=== PATIENT | female | born 1995 | race Caucasian/White ===

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

== ENCOUNTER 2017-02-24 08:00 | Outpatient (CLI) | payer OTHER ==
[2017-02-24 15:27] LABS: THYROID STIMULATING HORMONE 3.92 uIU/mL (0.34-5.60)
== END 2017-02-24 08:01 ==
LOC: LAB.N 08:00
PROVIDERS: ATTEND Obstetrics & Gynecology
DX: R63.5 Abnormal weight gain (principal)
CPT/HCPCS: 36415; 84439; 84443

== ENCOUNTER 2017-03-16 17:56 | Emergency (ER) | payer OTHER, BC ==
[2017-03-16 18:18] VITALS: BP 119/72
[2017-03-16] MEDS ORDERED: DOXYLAMINE 25 MG TABLET PO STA (19:45)
--- NOTE | 2017-03-16 19:47 | ED Physician Documentation ---
PD HPI NVD - Stated complaint Stated Complaint: N/V - Chief complaint Chief Complaint: Abd Pain - History obtained from History obtained from: Patient - History of Present Illness Timing - onset: Other (She is 7 weeks , G1, she has been nauseous for a week but no vomiting. No abdominal pain, cramping, bleeding, or diarrhea. 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 03/16/17 [Anna Castro 10-10 mg Tablet] Metoclopramide [Reglan] 10 mg PO Q6H PRN #20 tablet 03/16/17 Pnv95/Ferrous Fumarate/FA 1 tab PO DAILY 03/16/17 03/16/17 [ Tablet] - Allergies Allergies/Adverse Reactions: Allergies Allergy/AdvReac Type Severity Reaction Status Date / Time No Known Drug Allergies Allergy Verified 08/31/16 04:01 - Social History Does the pt smoke?: No Smoking Status: Never smoker Does the pt drink ETOH?: No Does the pt have substance abuse?: No - Immunizations Immunizations are current?: Yes - POLST Patient has POLST: No PD ED PE NORMAL - Vitals Vital signs reviewed: Yes - General General: Alert and oriented X 3, No acute distress - Abdomen Abdomen: Soft, Non tender - Derm Derm: No rash - Extremities Extremities: No edema, No calf tenderness / cord - Neuro Neuro: Alert and oriented X 3, Normal speech Results - Vitals Vitals: Vital Signs - 24 hr 03/16/17 18:16 Temperature 36.7 C Heart Rate 86 Respiratory 18 Rate Blood Pressure 119/72 O2 Saturation 99 Oxygen O2 Source Room air Departure - Departure Disposition: Home, Self Care Clinical Impression: Nausea/vomiting in Condition: Good Record reviewed to determine appropriate education?: Yes Instructions: Hyperemesis Prescriptions: Doxylamine/Pyridoxine HCl [Anna Castro 10-10 mg Tablet] 1 each PO QID PRN #20 tablet. PRN Reason: Nausea / Vomiting Metoclopramide [Reglan] 10 mg PO Q6H PRN #20 tablet PRN Reason: Nausea / Vomiting Comments: Call your doctor to arrange a follow-up appointment, make the next available appointment. In the interim, return anytime if worse or if new symptoms develop.
[2017-03-16] MEDS ORDERED: PYRIDOXINE 100 MG TABLET PO SCH (20:00)
[2017-03-16] MEDS ORDERED: PYRIDOXINE 100 MG TABLET PO ONE (20:43)
== END 2017-03-16 20:41 | disposition home or self-care (01) ==
LOC: ED 17:56
DX: O21.9 Vomiting of pregnancy, unspecified (principal); Z3A.01 Less than 8 weeks gestation of pregnancy
CPT/HCPCS: 99283; A9270

== ENCOUNTER 2017-05-25 15:00 | Emergency (ER) | payer OTHER, BC ==
--- NOTE | 2017-05-25 15:26 | ED Physician Documentation ---
PD HPI SYNCOPE - Stated complaint Stated Complaint: DIZZY-17 WKS - Chief complaint Chief Complaint: General - History obtained from History obtained from: Patient - History of Present Illness Witnessed: Unwitnessed Timing - onset: Today (stood up and felt lightheaded, almost felt like she was going to pass out. Did not faint though.) Duration: Minutes Preceding symptoms: Light headed, Generalized weakness (she was sitting studying and got up and felt lightheaded and near syncope, general weakness. Lasted for several minutes. Had been feeling okay prior to that today and feels that she has been eating and drinking adequately. She is 17 weeks without vaginal spotting nor bleeding.). No: Headache, Palpitations, Nausea / vomiting Contributing factors: Just stood up. No: Recent med change, Noxious stimulae Injury occurred: No: Fell, Head injury Similar symptoms before: Has not had sx before Recently seen: Not recently seen Review of Systems Constitutional: denies: Fever, Chills Eyes: denies: Loss of vision, Photophobia Nose: denies: Rhinorrhea / runny nose, Congestion Throat: denies: Sore throat Cardiac: denies: Chest pain / pressure Respiratory: denies: Cough : denies: Dysuria, Frequency Skin: denies: Rash, Lesions Musculoskeletal: denies: Back pain Neurologic: denies: Focal weakness Endocrine: reports: Polyuria. 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 03/16/17 [Anna Castro 10-10 mg Tablet] Metoclopramide [Reglan] 10 mg PO Q6H PRN #20 tablet 03/16/17 Pnv95/Ferrous Fumarate/FA 1 tab PO DAILY 03/16/17 03/16/17 [ Tablet] - Allergies Allergies/Adverse Reactions: Allergies Allergy/AdvReac Type Severity Reaction Status Date / Time No Known Drug Allergies Allergy Verified 08/31/16 04:01 - Social History Does the pt smoke?: No Smoking Status: Never smoker Does the pt drink ETOH?: No Does the pt have substance abuse?: No - Immunizations Immunizations are current?: Yes - POLST Patient has POLST: No PD ED PE NORMAL - Vitals Vital signs reviewed: Yes - General General: Alert and oriented X 3, No acute distress, Well developed/nourished - HEENT HEENT: Moist mucous membranes - Neck Neck: Supple, no meningeal sign, No adenopathy - Cardiac Cardiac: RRR, No murmur - Respiratory Respiratory: Clear bilaterally - Female Female : Deferred - Rectal Rectal: Deferred - Back Back: No CVA TTP - Derm Derm: Normal color, Warm and dry - Extremities Extremities: No tenderness to palpate, Normal ROM s pain, No edema, No calf tenderness / cord - Neuro Neuro: Alert and oriented X 3, No motor deficit, Normal speech Results - Vitals Vitals: Oxygen O2 Source Room air - Labs Labs: Laboratory Tests 05/25/17 05/25/17 05/25/17 15:26 15:55 15:55 WBC 4.6 L RBC 3.76 L Hgb 11.9 L Hct 34.8 L MCV 92.7 MCH 31.6 H MCHC 34.1 RDW 13.0 Plt Count 146 MPV 7.6 L Neut # 2.7 Lymph # 1.3 L Weakley # 0.4 Eos # 0.1 Baso # 0.0 Absolute Nucleated RBC 0.00 Nucleated RBC % 0.0 Sodium 136 Potassium 3.5 Chloride 103 Carbon Dioxide 25 Anion Gap 8.0 BUN 7 Creatinine 0.5 Estimated GFR (MDRD) 159 Glucose 83 Calcium 8.8 Magnesium 1.8 Total Bilirubin < 0.2 L AST 21 ALT 15 Alkaline Phosphatase 68 Total Protein 6.6 L Albumin 3.4 Globulin 3.2 Albumin/Globulin Ratio 1.1 Lipase 18 L Urine Color YELLOW Urine Clarity CLEAR Urine pH 6.0 Ur Specific Holladay 1.025 Urine Protein NEGATIVE Urine Glucose (UA) NEGATIVE Urine Ketones NEGATIVE Urine Occult Blood NEGATIVE Urine Nitrite NEGATIVE Urine Bilirubin NEGATIVE Urine Urobilinogen 0.2 (NORMAL) Ur Leukocyte Esterase NEGATIVE Ur Microscopic Review NOT INDICATED Urine Culture Comments NOT INDICATED PD MEDICAL DECISION MAKING - ED course Complexity details: re-evaluated patient, considered differential (no obvious cause of symptoms, she sounds like should be hydrated enough. But does end up feeling much be), d/w patient Departure - Departure Disposition: 01 Home, Self Care Clinical Impression: Near syncope, Dehydration Condition: Stable Record reviewed to determine appropriate education?: Yes Instructions: ED Near Syncope Unkn Follow-Up: JATINDER RYEES [Primary Care Provider] - Comments: Drink lots of fluids. Your basic labs are normal here. I presume your just under hydrated and had a transient drop in blood pressure was standing up. Recheck if persistent symptoms. Discharge Date/Time: 05/25/17 18:12
[2017-05-25 15:41] LABS: BILIRUBIN,URINE NEGATIVE (NEGATIVE); GLUCOSE, URINE (UA) NEGATIVE (NEGATIVE); KETONES,URINE (UA) NEGATIVE (NEGATIVE); LEUKOCYTE ESTERASE, URINE NEGATIVE (NEGATIVE); NITRITE,URINE NEGATIVE (NEGATIVE); OCCULT BLOOD,URINE NEGATIVE (NEGATIVE); PROTEIN,URINE NEGATIVE (NEGATIVE); UROBILINOGEN,URINE 0.2 (NORMAL) E.U./dL (NORMAL)
[2017-05-25 15:42] LABS: CLARITY,URINE CLEAR (CLEAR)
[2017-05-25] MEDS ORDERED: DEXAMETHASONE 10 MG/ML VIAL PO STA (15:42)
[2017-05-25] MEDS ORDERED: ONDANSETRON 4 MG/2 ML VIAL IVP STA (15:42)
[2017-05-25] MEDS ORDERED: SODIUM CHLORIDE 0.9% 1,000 ML IV ONE ×2 (15:42→15:43)
[2017-05-25] MEDS ORDERED: MECLIZINE 12.5 MG TABLET PO STA (15:42)
[2017-05-25 16:07] LABS: BASOPHILS % (AUTO) 0.3 %; EOSINOPHILS # (AUTO) 0.1 10^3/uL (0.0-0.7); EOSINOPHILS % (AUTO) 2.2 %; HGB - HEMOGLOBIN 11.9 g/dL (12.0-16.0); LYMPHOCYTES # (AUTO) 1.3 10^3/uL (1.5-3.5); LYMPHOCYTES % (AUTO) 29.2 %; MEAN CORPUSCULAR HEMOGLOBIN 31.6 pg (27.0-31.0); MEAN CORPUSCULAR HGB CONC 34.1 g/dL (32.0-36.0); MEAN CORPUSCULAR VOLUME 92.7 fL (81.0-99.0); MEAN PLATELET VOLUME 7.6 fL (7.9-10.8); MONOCYTES # (AUTO) 0.4 10^3/uL (0.0-1.0); MONOCYTES % (AUTO) 9.3 %; NEUTROPHILS # (AUTO) 2.7 10^3/uL (1.5-6.6); PLT - PLATELET COUNT 146 10^3/uL (130-450); RED BLOOD COUNT 3.76 10^6/uL (4.20-5.40); WHITE BLOOD COUNT 4.6 x10^3/uL (4.8-10.8)
[2017-05-25 16:14] LABS: ALBUMIN 3.4 g/dL (3.2-5.5); ALBUMIN/GLOBULIN RATIO 1.1 (1.0-2.2); ALKALINE PHOSPHATASE 68 IU/L (42-121); ALT ALANINE AMINOTRANSFERASE 15 IU/L (10-60); AST ASPARTATE AMINOTRANSFERASE 21 IU/L (10-42); BILIRUBIN,TOTAL < 0.2 mg/dL (0.2-1.0); BUN - BLOOD UREA NITROGEN 7 mg/dL (6-20); CALCIUM 8.8 mg/dL (8.5-10.3); CARBON DIOXIDE - CO2 25 mmol/L (21-32); CHLORIDE 103 mmol/L (101-111); CREATININE 0.5 mg/dL (0.4-1.0); GFR - MDRD 159 (>89); GLUCOSE 83 mg/dL (70-100); LIPASE 18 U/L (22-51); MAGNESIUM 1.8 mg/dL (1.7-2.8); SODIUM 136 mmol/L (135-145); TOTAL PROTEIN 6.6 g/dL (6.7-8.2)
[2017-05-25 18:08] VITALS: BP 102/64
== END 2017-05-25 18:12 | disposition home or self-care (01) ==
LOC: ED 15:00
DX: O99.282 Endocrine, nutritional and metabolic diseases complicating pregnancy, second trimester (principal); E86.0 Dehydration; O99.89 Other specified diseases and conditions complicating pregnancy, childbirth and the puerperium; R55 Syncope and collapse; Z3A.17 17 weeks gestation of pregnancy
CPT/HCPCS: 36415; 80053; 81003; 83690; 83735; 85025; 96361; 96374; 99283; 99284; A9270; 81001; 87086

== ENCOUNTER 2017-05-26 16:15 | Outpatient (CLI) | payer BC, OTHER | END 2017-05-26 16:16 | disposition home or self-care (01) | LOC: LAB 16:15 | PROVIDERS: ATTEND Obstetrics & Gynecology | DX: Z13.79 Encounter for other screening for genetic and chromosomal anomalies (principal) | CPT/HCPCS: 36415; 81599; 82105; 82677; 84702; 86336 ==

== ENCOUNTER 2017-06-30 12:33 | Outpatient (CLI) | payer BC, OTHER ==
--- NOTE | 2017-07-02 19:11 | Ultrasound Report ---
OB ULTRASOUND: 06/30/2017 CLINICAL INDICATION: anatomy. TECHNIQUE: Real-time scanning was performed with appeals representative static images obtained. LAST MENSTRUAL PERIOD: unsure Clinical Age: -- US Age: 21 weeks 3 days EFW Hadlock: 433 grams EFW% Hadlock: -- Heart Rate: 135 bpm EDC: 11/12/2017 US EDC: 11/07/2017 BPD Hadlock: 22 weeks 0 days; Mean mm 53 HC Hadlock: 21 weeks 0 days; Mean mm 186 AC Hadlock: 21 weeks 3 days; Mean mm 163 FL Hadlock: 21 weeks 6 days; Mean mm 37 Presentation: variable Placental Location: posterior Cervical Length: 3.7 cm Amniotic Fluid: PELON 17.56 cm; subjectively normal; MVP 4.8 cm FINDINGS: There is a single viable intrauterine gestation, in variable presentation. heart rate is 135 BPM. Placenta is posterior, without evidence of previa. Amniotic fluid volume is subjectively normal, with the deepest pocket of 4.8 cm. By size , the fetus measures 21 weeks 3 days (uncertain LMP). ANATOMY The following anatomic structures were visualized and appear normal: The intracranial contents, including the ventricles and posterior fossa; the lips and orbits; the spine; the heart, including 4 chamber view and outflow tracts, and diaphragm; the abdominal contents, including the stomach, the bilateral kidneys, and urinary bladder, as well as a normal 3-vessel cord insertion; 4 limbs. No free fluid or adnexal lesion is appreciated. IMPRESSION: SINGLE VIABLE INTRAUTERINE GESTATION, MEASURING 21 WEEKS 3 DAYS BY SIZE. NORMAL ANATOMIC SURVEY. TD: 06/30/2017 15:11 MTDD
== END 2017-06-30 12:34 | disposition home or self-care (01) ==
LOC: DI 12:33
PROVIDERS: ATTEND Obstetrics & Gynecology
DX: Z36.9 Encounter for antenatal screening, unspecified (principal)
CPT/HCPCS: 76811

== ENCOUNTER 2017-07-07 14:37 | Outpatient (CLI) | payer BC, OTHER ==
[2017-07-07] MEDS ORDERED: fentaNYL 100 MCG/2 ML VIAL IVP PRN (15:11)
[2017-07-07] MEDS ORDERED: ONDANSETRON 4 MG/2 ML VIAL IVP PRN (15:12)
[2017-07-07] MEDS ORDERED: SODIUM CHLORIDE FLUSH 0.9% 10 ML SYRINGE ONE (15:29)
[2017-07-07] MEDS ORDERED: LACTATED RINGERS 1,000 ML IV ONE (15:29)
[2017-07-07 16:10] LABS: BASOPHILS % (AUTO) 0.3 %; EOSINOPHILS # (AUTO) 0.1 10^3/uL (0.0-0.7); EOSINOPHILS % (AUTO) 1.6 %; HGB - HEMOGLOBIN 11.7 g/dL (12.0-16.0); LYMPHOCYTES # (AUTO) 1.6 10^3/uL (1.5-3.5); LYMPHOCYTES % (AUTO) 18.7 %; MEAN CORPUSCULAR HEMOGLOBIN 31.8 pg (27.0-31.0); MEAN CORPUSCULAR HGB CONC 33.3 g/dL (32.0-36.0); MEAN CORPUSCULAR VOLUME 95.5 fL (81.0-99.0); MEAN PLATELET VOLUME 8.3 fL (7.9-10.8); MONOCYTES # (AUTO) 0.5 10^3/uL (0.0-1.0); MONOCYTES % (AUTO) 5.3 %; NEUTROPHILS # (AUTO) 6.2 10^3/uL (1.5-6.6); NEUTROPHILS % (AUTO) 74.1 %; PLT - PLATELET COUNT 167 10^3/uL (130-450); RED BLOOD COUNT 3.67 10^6/uL (4.20-5.40); RED CELL DISTRIBUTION WIDTH 13.1 % (12.0-15.0); WHITE BLOOD COUNT 8.4 x10^3/uL (4.8-10.8)
[2017-07-07 16:18] LABS: CALCIUM 8.7 mg/dL (8.5-10.3); CREATININE 0.5 mg/dL (0.4-1.0)
[2017-07-07 16:24] LABS: BILIRUBIN,URINE NEGATIVE (NEGATIVE); GLUCOSE, URINE (UA) NEGATIVE (NEGATIVE); KETONES,URINE (UA) TRACE mg/dL (NEGATIVE); LEUKOCYTE ESTERASE, URINE NEGATIVE (NEGATIVE); NITRITE,URINE NEGATIVE (NEGATIVE); OCCULT BLOOD,URINE NEGATIVE (NEGATIVE); PROTEIN,URINE NEGATIVE (NEGATIVE); UROBILINOGEN,URINE 0.2 (NORMAL) E.U./dL (NORMAL)
[2017-07-07 16:27] LABS: CLARITY,URINE CLEAR (CLEAR)
[2017-07-07 16:39] LABS: BACTERIA,URINE Rare /HPF (None Seen); RBC,URINE 0-5 /HPF (0-5); SQUAMOUS EPITHELIAL CELL,UR MANY Squamous (<= Few)
[2017-07-07] MEDS ORDERED: LACTATED RINGERS 1,000 ML IV SCH (17:00)
--- NOTE | 2017-07-07 17:49 | Ultrasound Preliminary Report ---
Exam: US OB F/U OR REPEAT IMPRESSION: 1. Marion live intrauterine gestation. No evidence of placental abruption. Normal cervix. [facility] SITE ID: [id number]
--- NOTE | 2017-07-07 17:50 | Ultrasound Report ---
REVISED: REPORT ORIG. SIGNED ON 07/07/2017@1750; ORDERS LINKED ON [id number] EXAM: FOLLOW-UP OBSTETRICAL ULTRASOUND EXAM DATE: 07/07/2017 05:35 PM. CLINICAL HISTORY: Severe left lower quadrant pain. COMPARISON: 06/30/2017. TECHNIQUE: Real-time sonographic evaluation of the fetus performed by the center sales and service associate. Additional transvaginal imaging to more accurately evaluate cervical length. Multiple physician representative static images were saved for review. DATING: Established EGA 22 weeks 3 days with ZEESHAN 11/07/2017 based on anatomy scan. GENERAL EVALUATION Marion . Cardiac activity: 137 bpm. movement: Visualized. Presentation: Cephalic. Placenta: Posterior position. No previa or abruption. Amniotic fluid: Subjectively normal The cervix is closed, measuring 4.3 cm transvaginally. IMPRESSION: 1. Marion live intrauterine gestation. No evidence of placental abruption. Normal cervix. [facility] Referring Provider Line: [phone] SITE ID: [id number] MTDD
[2017-07-07 17:58] VITALS: BP 106/62
--- NOTE | 2017-07-08 13:35 | HISTORY & PHYSICAL EXAMINATION ---
DATE OF SERVICE: 07/07/2017 Physician: Kem Mcdonald MD PATIENT IDENTIFICATION: Patient is a 21-year-old G2, P0, AB1 female who is currently 23.1 weeks. CHIEF COMPLAINT: Left lower quadrant pain. HISTORY OF PRESENT ILLNESS: Patient states that last week she developed some difficulty with anxiety. She was seen by her OB provider, at which time she was placed on Zoloft. She had used this in the past; however, she developed nausea and then developed severe vomiting immediately following this. While retching she developed a very sharp onset left lower quadrant pain. She denies any bleeding. She is noted to have a fetus which is moving. She denies any contractions or cramping at this time. She states the pain is very severe, probably about a 7/10. Labs were obtained, at which time she was noted to have a normal CBC. Her urinalysis was negative for RBCs. She did have squamous epithelial cells. Her electrolytes were all within normal limits. Ultrasound showed evidence of a live with good activity. No evidence of any abruption or other issues. Cervix is long, greater than 4 cm. IMPRESSION: A 21-year-old G2, P0, female at 23.1 weeks with acute muscle strain in the left lower quadrant. There is no evidence of any kind of abruption or any other compromise to the at this time. Patient instructed to ice the area for the first 24-48 hours and then utilize warm heat. She is instructed that should things progressively get worse or change, she should presents sooner. TD: 07/07/2017 20:54 [facility]ITAL[facility] Grace
== END 2017-07-07 17:55 | disposition home or self-care (01) ==
LOC: WFO 14:37 → FBP 14:40 → WFO 17:55
PROVIDERS: ATTEND Obstetrics & Gynecology
DX: O9A.212 Injury, poisoning and certain other consequences of external causes complicating pregnancy, second trimester (principal); S39.011A Strain of muscle, fascia and tendon of abdomen, initial encounter; O21.2 Late vomiting of pregnancy; X58.XXXA Exposure to other specified factors, initial encounter; Z3A.23 23 weeks gestation of pregnancy
CPT/HCPCS: 76816; 76817; 80048; 81001; 85025; 96374; 96375; 99214; J7120; 36415; 87086

== ENCOUNTER 2017-07-14 13:52 | Outpatient (CLI) | payer BC, OTHER ==
[2017-07-14 18:55] LABS: BASOPHILS % (AUTO) 0.2 %; EOSINOPHILS # (AUTO) 0.2 10^3/uL (0.0-0.7); EOSINOPHILS % (AUTO) 2.9 %; HGB - HEMOGLOBIN 10.3 g/dL (12.0-16.0); LYMPHOCYTES # (AUTO) 1.3 10^3/uL (1.5-3.5); LYMPHOCYTES % (AUTO) 18.7 %; MEAN CORPUSCULAR HEMOGLOBIN 32.3 pg (27.0-31.0); MEAN CORPUSCULAR HGB CONC 33.7 g/dL (32.0-36.0); MEAN CORPUSCULAR VOLUME 95.9 fL (81.0-99.0); MEAN PLATELET VOLUME 8.5 fL (7.9-10.8); MONOCYTES # (AUTO) 0.4 10^3/uL (0.0-1.0); MONOCYTES % (AUTO) 6.2 %; PLT - PLATELET COUNT 145 10^3/uL (130-450); RED CELL DISTRIBUTION WIDTH 12.8 % (12.0-15.0); WHITE BLOOD COUNT 6.9 x10^3/uL (4.8-10.8)
[2017-07-14 19:16] LABS: BILIRUBIN,URINE NEGATIVE (NEGATIVE); GLUCOSE, URINE (UA) NEGATIVE (NEGATIVE); KETONES,URINE (UA) NEGATIVE (NEGATIVE); LEUKOCYTE ESTERASE, URINE NEGATIVE (NEGATIVE); NITRITE,URINE NEGATIVE (NEGATIVE); OCCULT BLOOD,URINE NEGATIVE (NEGATIVE); PROTEIN,URINE NEGATIVE (NEGATIVE); UROBILINOGEN,URINE 0.2 (NORMAL) E.U./dL (NORMAL)
[2017-07-14 19:31] LABS: CLARITY,URINE CLEAR (CLEAR); RBC,URINE None Seen /HPF (0-5); SQUAMOUS EPITHELIAL CELL,UR FEW Squamous (<= Few)
[2017-07-14 19:32] LABS: BACTERIA,URINE None Seen /HPF (None Seen)
[2017-07-14 19:33] LABS: MUCUS,URINE Moderate Strands
[2017-07-15 09:05] LABS: HEPATITIS B SURFACE ANTIGEN NON-REACTIVE (NON-REACTIVE)
[2017-07-15 14:48] LABS: HIV AG/AB 4TH GEN NON-REACTIVE (NON-REACTIVE)
== END 2017-07-14 13:53 | disposition home or self-care (01) ==
LOC: LAB.N 13:52
PROVIDERS: ATTEND Obstetrics & Gynecology
DX: Z36.9 Encounter for antenatal screening, unspecified (principal)
CPT/HCPCS: 36415; 81001; 81599; 85025; 86592; 86762; 86850; 86900; 86901; 87340; 87389

== ENCOUNTER 2017-07-24 18:31 | Outpatient (CLI) | payer BC, OTHER ==
[2017-07-24 20:04] VITALS: BP 109/59
--- NOTE | 2017-07-25 16:51 | XRAY Preliminary Report ---
Exam: XR CHEST 2 VIEW X-RAY IMPRESSION: Normal 2-view chest radiography. [facility] SITE ID: [id number]
--- NOTE | 2017-07-25 16:52 | XRAY Report ---
EXAM: CHEST RADIOGRAPHY EXAM DATE: 07/24/2017 07:30 PM. CLINICAL HISTORY: Shortness of air. Chest pain. Symptoms for one week. COMPARISON: None. TECHNIQUE: 2 views. FINDINGS: Lungs/Pleura: No focal opacities evident. No pleural effusion. No pneumothorax. Normal volumes. Mediastinum: Heart and mediastinal contours are unremarkable. Other: None. IMPRESSION: Normal 2-view chest radiography. [facility] Referring Provider Line: [phone] SITE ID: [id number]
== END 2017-07-24 20:30 | disposition home or self-care (01) ==
LOC: WFO 18:31 → FBP 18:33 → WFO 20:30
PROVIDERS: ATTEND Obstetrics & Gynecology
DX: O99.612 Diseases of the digestive system complicating pregnancy, second trimester (principal); Z3A.25 25 weeks gestation of pregnancy; K21.9 Gastro-esophageal reflux disease without esophagitis; O99.512 Diseases of the respiratory system complicating pregnancy, second trimester; J30.9 Allergic rhinitis, unspecified; O99.342 Other mental disorders complicating pregnancy, second trimester; F41.9 Anxiety disorder, unspecified
CPT/HCPCS: 71046; 99213

== ENCOUNTER 2017-08-05 14:30 | Outpatient (CLI) | payer BC, OTHER ==
[2017-08-05 19:08] LABS: HGB - HEMOGLOBIN 11.2 g/dL (12.0-16.0); MEAN CORPUSCULAR HEMOGLOBIN 32.7 pg (27.0-31.0); MEAN CORPUSCULAR VOLUME 96.1 fL (81.0-99.0); MEAN PLATELET VOLUME 8.9 fL (7.9-10.8); RED BLOOD COUNT 3.42 10^6/uL (4.20-5.40); RED CELL DISTRIBUTION WIDTH 12.5 % (12.0-15.0); WHITE BLOOD COUNT 7.3 x10^3/uL (4.8-10.8)
== END 2017-08-05 14:31 | disposition home or self-care (01) ==
LOC: LAB.N 14:30
PROVIDERS: ATTEND Obstetrics & Gynecology
DX: Z34.90 Encounter for supervision of normal pregnancy, unspecified, unspecified trimester (principal)
CPT/HCPCS: 36415; 82950; 85025; 85027; 86850

== ENCOUNTER 2017-08-06 18:02 | Outpatient (CLI) | payer BC, OTHER ==
[2017-08-06 19:06] VITALS: BP 106/68
== END 2017-08-06 18:20 | disposition home or self-care (01) ==
LOC: WFO 18:02 → FBP 18:03 → WFO 18:20
PROVIDERS: ATTEND Obstetrics & Gynecology
DX: O99.89 Other specified diseases and conditions complicating pregnancy, childbirth and the puerperium (principal); R07.9 Chest pain, unspecified; Z3A.27 27 weeks gestation of pregnancy
CPT/HCPCS: 93005; 99213

== ENCOUNTER 2017-09-11 14:26 | Emergency (ER) | payer BC, OTHER ==
[2017-09-11 15:06] VITALS: BP 135/72
--- NOTE | 2017-09-11 16:16 | ED Physician Documentation ---
PD HPI HEENT - Stated complaint Stated Complaint: SWOLLEN LYMPH NODES-PX RIGHT - Chief complaint Chief Complaint: Heent - History obtained from History obtained from: Patient - History of Present Illness Timing - onset: How many days ago (4-5) Timing - duration: Days Timing - details: Gradual onset, Still present Location: Other (anterior right neck). No: Right ear, Left ear, Throat Improves: No: Medication (has been on Keflex for 3 days and no improvement.) Worsens: Swalllowing Associated symptoms: Swollen nodes. No: Fever, Congestion, Unable to swallow, Facial swelling, Headache, Cough Recently seen: Clinic (3 days ago and Rx Keflex for Dx cervical adenitis. No other focal infection found. She says worse and not improved.) Review of Systems Constitutional: reports: Myalgias. denies: Fever, Chills Nose: denies: Rhinorrhea / runny nose, Congestion Throat: reports: Sore throat. 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 HEENT: None Psych: None Musculoskeletal: None Derm: None - Past Surgical History Past Surgical History: Yes General: Appendectomy HEENT: Tonsil/Adenoidectomy - Present Medications Home Medications: Ambulatory Orders Medication Instructions Recorded Confirmed Pnv95/Ferrous Fumarate/FA 1 tab PO DAILY 03/16/17 03/16/17 [ Tablet] Azithromycin [Zithromax] 250 mg PO DAILY #4 tablet 09/11/17 Tramadol HCl 50 mg PO Q6H PRN #10 tablet 09/11/17 raNITIdine [Zantac] 09/11/17 - Allergies Allergies/Adverse Reactions: Allergies Allergy/AdvReac Type Severity Reaction Status Date / Time No Known Drug Allergies Allergy Verified 08/31/16 04:01 - Social History Does the pt smoke?: No Smoking Status: Former smoker Does the pt drink ETOH?: No Does the pt have substance abuse?: No - Immunizations Immunizations are current?: Yes - POLST Patient has POLST: No PD ED PE NORMAL - Vitals Vital signs reviewed: Yes - General General: Alert and oriented X 3, No acute distress, Well developed/nourished - HEENT HEENT: Ears normal, Pharynx benign (no exudate of tonsils and no peritonsillar swelling seen. Sbulingual area not tender to palpation with gloved finger. ) - Neck Neck: Supple, no meningeal sign, Other (right anterior tender node about 2 cm size. Skin without redness nor rash. ) - Cardiac Cardiac: RRR, No murmur - Respiratory Respiratory: Clear bilaterally - Abdomen Abdomen: Soft, Non tender, Other (gravid c/w dates) - Derm Derm: Normal color, Warm and dry, No rash - Neuro Neuro: Alert and oriented X 3, No motor deficit, Normal speech Results - Vitals Vitals: Vital Signs - 24 hr 09/11/17 15:01 Temperature 36.2 C L Heart Rate 95 Respiratory 16 Rate Blood Pressure 135/72 H O2 Saturation 98 Oxygen O2 Source Room air PD MEDICAL DECISION MAKING - ED course Complexity details: considered differential (still with focal tender adenitis right anterior neck despite Keflex for few days. ), d/w patient - Sepsis Event Vital Signs: Vital Signs - 24 hr 09/11/17 15:01 Temperature 36.2 C L Heart Rate 95 Respiratory 16 Rate Blood Pressure 135/72 H O2 Saturation 98 Oxygen O2 Source Room air Departure - Departure Disposition: 01 Home, Self Care Clinical Impression: Cervical adenitis Condition: Stable Record reviewed to determine appropriate education?: Yes Instructions: ED Cervical Adenitis Abx Tx Follow-Up: JATINDER REYES [Primary Care Provider] - [facility] [Provider Group] Prescriptions: Azithromycin [Zithromax] 250 mg PO DAILY #4 tablet Tramadol HCl 50 mg PO Q6H PRN #10 tablet PRN Reason: Pain Comments: This still seems like neck adenitis (inflammation and infection of a lymph node) . However since it is not improved with the cephalexin, I would stop the antibiotic and change to azithromycin instead (category B for ). Drink lots of fluids. Use Tylenol if needed for pains 4 times a day. Add tramadol if needed for worse pain (category C in ). We also gave a dose of Decadron/steroid which will last for couple of days to help with the inflammation. Typically we do not want to use NSAIDs at this point in . Recheck if not improving over the next couple of days. Drink lots of fluids. Discharge Date/Time: 09/11/17 17:05
[2017-09-11] MEDS ORDERED: AZITHROMYCIN 250 MG TABLET PO STA (16:36)
[2017-09-11] MEDS ORDERED: DEXAMETHASONE 10 MG/ML VIAL PO STA (16:37)
[2017-09-11] MEDS ORDERED: ACETAMINOPHEN 325 MG TABLET PO STA (16:40)
[2017-09-11] MEDS ORDERED: traMADol 50 MG TABLET PO STA (16:40)
[2017-09-11] MEDS ORDERED: CHERRY SYRUP 10 ML UDC PO ONE (16:59)
== END 2017-09-11 17:05 | disposition home or self-care (01) ==
LOC: ED 14:26
DX: O26.899 Other specified pregnancy related conditions, unspecified trimester (principal); Z3A.00 Weeks of gestation of pregnancy not specified; I88.9 Nonspecific lymphadenitis, unspecified; Z87.891 Personal history of nicotine dependence
CPT/HCPCS: 99283; A9270

== ENCOUNTER 2017-09-13 22:34 | Outpatient (CLI) | payer BC, OTHER ==
[2017-09-13 22:51] VITALS: BP 117/65
== END 2017-09-13 23:24 | disposition home or self-care (01) ==
LOC: WFO 22:34 → FBP 22:36 → WFO 23:24
PROVIDERS: ATTEND Obstetrics & Gynecology
DX: O99.89 Other specified diseases and conditions complicating pregnancy, childbirth and the puerperium (principal); R68.84 Jaw pain; Z3A.33 33 weeks gestation of pregnancy
CPT/HCPCS: 99212

== ENCOUNTER 2017-09-13 23:27 | Emergency (ER) | payer BC, OTHER ==
[2017-09-13 23:38] VITALS: BP 123/80
--- NOTE | 2017-09-14 00:03 | ED Physician Documentation ---
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 : None HEENT: None Psych: None Musculoskeletal: None Derm: None - Past Surgical History Past Surgical History: Yes General: Appendectomy HEENT: Tonsil/Adenoidectomy - Present Medications Home Medications: Ambulatory Orders Medication Instructions Recorded Confirmed Pnv95/Ferrous Fumarate/FA 1 tab PO DAILY 03/16/17 03/16/17 [ Tablet] Azithromycin [Zithromax] 250 mg PO DAILY #4 tablet 09/11/17 Tramadol HCl 50 mg PO Q6H PRN #10 tablet 09/11/17 raNITIdine [Zantac] 09/11/17 - Allergies Allergies/Adverse Reactions: Allergies Allergy/AdvReac Type Severity Reaction Status Date / Time No Known Drug Allergies Allergy Verified 09/13/17 23:38 - Social History Does the pt smoke?: No Smoking Status: Never smoker Does the pt drink ETOH?: No Does the pt have substance abuse?: No - Immunizations Immunizations are current?: Yes - POLST Patient has POLST: No Results - Vitals Vitals: Vital Signs - 24 hr 09/13/17 23:30 Temperature 36.9 C Heart Rate 77 Respiratory 17 Rate Blood Pressure 123/80 O2 Saturation 100 Oxygen O2 Source Room air PD MEDICAL DECISION MAKING - Sepsis Event Vital Signs: Vital Signs - 24 hr 09/13/17 23:30 Temperature 36.9 C Heart Rate 77 Respiratory 17 Rate Blood Pressure 123/80 O2 Saturation 100 Oxygen O2 Source Room air Departure - Departure Disposition: Home, Self Care Clinical Impression: Cervical adenitis Condition: Good Instructions: ED Cervical Adenitis No Abx Tx Follow-Up: JATINDER REYES [Primary Care Provider] - Tomorrow Comments: it seems as if your adenitis has resolved. you can continue icing the area and taking tylenol as needed for pain. you should follow up with your doctor tomorrow and your dentist. you may return to the emergency department at any time for new, worsening or uncontrollable symptoms.
--- NOTE | 2017-09-14 01:42 | ED Physician Documentation ---
PD HPI HEENT - Stated complaint Stated Complaint: SWOLLEN NECK - Chief complaint Chief Complaint: Heent - History obtained from History obtained from: Patient - History of Present Illness Timing - onset: How many weeks ago (1) Timing - details: Intermittant Location: Throat, Other (neck) Improves: Ice Associated symptoms: Facial swelling Similar symptoms before: Work up / diagnostics, Treatment Recently seen: Clinic, Emergency Dept - Additional information Additional information: Patient is a 22 year old female approximately 30 weeks by dates who is presenting to the emergency department for neck swelling. patient has been on two different courses of antibiotics (keflex and azithromycin) for cervical adenitis. Patient states that the pain came back tonight so she came to the emergency department. (patient was cleared by ob prior to coming to the main ed ). Upon initial evaluation in the emergency department patient had been icing her neck and her adenopathy had resolved. 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 : None HEENT: None Psych: None Musculoskeletal: None Derm: None - Past Surgical History Past Surgical History: Yes General: Appendectomy HEENT: Tonsil/Adenoidectomy - Present Medications Home Medications: Ambulatory Orders Medication Instructions Recorded Confirmed Pnv95/Ferrous Fumarate/FA 1 tab PO DAILY 03/16/17 03/16/17 [ Tablet] Azithromycin [Zithromax] 250 mg PO DAILY #4 tablet 09/11/17 Tramadol HCl 50 mg PO Q6H PRN #10 tablet 09/11/17 raNITIdine [Zantac] 09/11/17 - Allergies Allergies/Adverse Reactions: Allergies Allergy/AdvReac Type Severity Reaction Status Date / Time No Known Drug Allergies Allergy Verified 09/13/17 23:38 - Social History Does the pt smoke?: No Smoking Status: Never smoker Does the pt drink ETOH?: No Does the pt have substance abuse?: No - Immunizations Immunizations are current?: Yes - POLST Patient has POLST: No PD ED PE NORMAL - Vitals Vital signs reviewed: Yes - General General: Alert and oriented X 3 - HEENT HEENT: Atraumatic, PERRL, Moist mucous membranes, Pharynx benign, Dentition benign - Neck Neck: Supple, no meningeal sign, No adenopathy - Cardiac Cardiac: RRR - Respiratory Respiratory: No respiratory distress - Derm Derm: Normal color, Warm and dry - Extremities Extremities: No deformity - Neuro Neuro: Alert and oriented X 3 Eye Opening: Spontaneous - Psych Psych: Normal mood Results - Vitals Vitals: Vital Signs - 24 hr 09/13/17 23:30 Temperature 36.9 C Heart Rate 77 Respiratory 17 Rate Blood Pressure 123/80 O2 Saturation 100 Oxygen O2 Source Room air PD MEDICAL DECISION MAKING - ED course Complexity details: reviewed old records, reviewed results, re-evaluated patient , considered differential, d/w patient ED course: Patient was seen and examined at bedside. Patient was well appearing and there was no adenopathy. bedside ultrasound was performed and showed no abscess or fluid collection. Patient required no further work up at this time and was stable for discharge with outpatient follow up. - Sepsis Event Vital Signs: Vital Signs - 24 hr 09/13/17 23:30 Temperature 36.9 C Heart Rate 77 Respiratory 17 Rate Blood Pressure 123/80 O2 Saturation 100 Oxygen O2 Source Room air Departure - Departure Disposition: 01 Home, Self Care Clinical Impression: Cervical adenitis Condition: Good Instructions: ED Cervical Adenitis No Abx Tx Follow-Up: JATINDER REYES [Primary Care Provider] - Tomorrow Comments: it seems as if your adenitis has resolved. you can continue icing the area and taking tylenol as needed for pain. you should follow up with your doctor tomorrow and your dentist. you may return to the emergency department at any time for new, worsening or uncontrollable symptoms. Discharge Date/Time: 09/14/17 00:10
== END 2017-09-14 00:10 | disposition home or self-care (01) ==
LOC: ED 23:27
DX: O26.893 Other specified pregnancy related conditions, third trimester (principal); I88.9 Nonspecific lymphadenitis, unspecified; Z3A.33 33 weeks gestation of pregnancy; R68.84 Jaw pain
CPT/HCPCS: 99212; 99282; 99283

== ENCOUNTER 2017-09-28 00:46 | Emergency (ER) | payer BC, OTHER ==
--- NOTE | 2017-09-28 01:50 | ED Physician Documentation ---
PD HPI HEENT - Stated complaint Stated Complaint: TMJ PAIN - Chief complaint Chief Complaint: Heent - History obtained from History obtained from: Patient - History of Present Illness Timing - onset: How many weeks ago (1-2) Timing - details: Constant, Intermittant Pain level now: 10 Location: Other (right jaw (TMJ) radiating down left lower mandible) Improves: Nothing Worsens: Position (opening mouth wider results in worsening pain) Associated symptoms: No: Fever Similar symptoms before: Has not had sx before Recently seen: Clinic - Additional information Additional information: patient has had right jaw and tmj pain x 1-2 weeks, had wisdom tooth removed 1 week ago (right mandibular third molar), and has MRI scheduled for 6:30 this morning. presents due to intractable pain. 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 : None HEENT: None Psych: None Musculoskeletal: None Derm: None Other Past Medical History: TMJ disease - Past Surgical History Past Surgical History: Yes General: Appendectomy HEENT: Tonsil/Adenoidectomy - Present Medications Home Medications: Ambulatory Orders Medication Instructions Recorded Confirmed raNITIdine [Zantac] 1 tab PO DAILY 09/11/17 Multivitamin [Multiple Vitamins] 1 tab PO DAILY 09/28/17 09/28/17 oxyCODONE/ACET 5/325 [Percocet 5 1 tab PO Q4HR PRN 09/28/17 09/28/17 mg/325 mg] - Allergies Allergies/Adverse Reactions: Allergies Allergy/AdvReac Type Severity Reaction Status Date / Time No Known Drug Allergies Allergy Verified 09/28/17 01:08 - Social History Does the pt smoke?: No Smoking Status: Never smoker Does the pt drink ETOH?: No Does the pt have substance abuse?: No - Immunizations Immunizations are current?: Yes - POLST Patient has POLST: No PD ED PE NORMAL - Vitals Vital signs reviewed: Yes - General General: Alert and oriented X 3, Well developed/nourished, Other (appears uncomfortable) - HEENT HEENT: PERRL, EOMI, Moist mucous membranes, Pharynx benign, Other (extraction site (right mandible, third molar) is clean and dry without bleeding, discharge , swelling, or fluctuance. ) - Neck Neck: Supple, no meningeal sign, No bony TTP PD ED PE EXPANDED - HEENT HEENT: Other (limited mandible ROM (can only open 2-3 fingers breadth due to pain). there is distinct clicking with opening and closing mandible at TMJs) Results - Vitals Vitals: Oxygen O2 Source Room air PD MEDICAL DECISION MAKING - ED course Complexity details: re-evaluated patient, considered differential, d/w patient ED course: given percocet without improvement. given 0.5 mg IM dilaudid x 2 doses which eventually achieved adequate pain relief. risks/benefits of using these medications in discussed with patient. D/W Dr. Augustin, recommends patient go through with MRI as scheduled this AM, then can bring disk of study to his office to discuss options, including consideration of performing the TMJ surgery before delivery if indicated. - Sepsis Event Vital Signs: Oxygen O2 Source Room air Departure - Departure Disposition: 01 Home, Self Care Clinical Impression: TMJ (temporomandibular joint syndrome) Condition: Good Instructions: ED TMJ Syndrome Follow-Up: Donnie Augustin DDS [Provider Admit Priv/Credential] - Discharge Date/Time: 09/28/17 04:45
[2017-09-28] MEDS ORDERED: oxyCODONE 5 MG TABLET PO STA (02:06)
[2017-09-28] MEDS ORDERED: HYDROmorphone 1 MG/ML CARPUJECT IM STA ×2 (03:24→04:10)
[2017-09-28 04:45] VITALS: BP 128/74
== END 2017-09-28 04:45 | disposition home or self-care (01) ==
LOC: ED 00:46
DX: O99.89 Other specified diseases and conditions complicating pregnancy, childbirth and the puerperium (principal); M26.621 Arthralgia of right temporomandibular joint; Z3A.35 35 weeks gestation of pregnancy; Z98.818 Other dental procedure status
CPT/HCPCS: 87081; 96372; 99283; A9270; J1170; 99214

== ENCOUNTER 2017-09-28 10:50 | Outpatient (CLI) | payer BC, OTHER ==
[2017-09-28 11:30] VITALS: BP 116/72
== END 2017-09-28 13:15 | disposition home or self-care (01) ==
LOC: WFO 10:50 → FBP 10:52 → WFO 13:15
PROVIDERS: ATTEND Obstetrics & Gynecology
DX: O99.89 Other specified diseases and conditions complicating pregnancy, childbirth and the puerperium (principal); M26.603 Bilateral temporomandibular joint disorder, unspecified; Z3A.35 35 weeks gestation of pregnancy; Z98.818 Other dental procedure status
CPT/HCPCS: 87081; 99214

== ENCOUNTER 2017-10-05 08:00 | Outpatient (CLI) | payer BC, OTHER | END 2017-10-05 08:01 | disposition home or self-care (01) | LOC: LAB.R 08:00 | PROVIDERS: ATTEND Obstetrics & Gynecology | DX: Z36.9 Encounter for antenatal screening, unspecified (principal); B37.3 Candidiasis of vulva and vagina | CPT/HCPCS: 87081; 87480; 87510; 87660 ==

== ENCOUNTER 2017-10-08 19:14 | Emergency (ER) | payer BC, OTHER ==
[2017-10-08] MEDS ORDERED: IOPAMIDOL-300 100 ML VIAL IVP ONE ×2 (19:15→21:20)
[2017-10-08] MEDS ORDERED: ACETAMINOPHEN 500 MG TABLET PO STA (20:13)
--- NOTE | 2017-10-08 20:14 | ED Physician Documentation ---
History of Present Illness - Stated complaint Stated Complaint: SWOLLEN/PX NECK - Chief complaint Chief Complaint: General - History obtained from History obtained from: Patient - Additonal information Additional information: 22-year-old female presents the emergency department with increasing neck swelling, reports of difficulty opening her mouth, tongue pain and intraoral redness. The patient's symptoms have been progressively worsening over the past month. The patient's been on 2 courses of amoxicillin, Zithromax and currently is on Augmentin. The patient is following with oral surgery and recently had a tooth extraction and is scheduled for an MRI to evaluate for TMJ. The patient reportsIncreasing neck swelling and difficulty opening her mouth and reports increased tongue swelling and redness intraorally. The patient denies fever, difficulty handling her secretions, difficulty breathing fevers or facial redness or skin changes. Symptoms are described as moderate. No other associated symptoms. The patient is currently 36 weeks , the patient reports no contractions, no vaginal discharge, no vaginal bleeding, the patient denies any episode that would represent a premature rupture of membranes and the patient reports the baby moving normally. The patient has no concerns regarding her . Review of Systems Constitutional: denies: Fever, Chills Eyes: denies: Discharge Ears: denies: Loss of hearing, Ear pain, Foreign body Nose: denies: Rhinorrhea / runny nose, Congestion Throat: reports: Sore throat. 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 : None HEENT: None Psych: Depression Musculoskeletal: None Derm: None - Past Surgical History Past Surgical History: Yes General: Appendectomy HEENT: Tonsil/Adenoidectomy - Present Medications Home Medications: Ambulatory Orders Medication Instructions Recorded Confirmed raNITIdine [Zantac] 1 tab PO DAILY 09/11/17 Multivitamin [Multiple Vitamins] 1 tab PO DAILY 09/28/17 09/28/17 oxyCODONE/ACET 5/325 [Percocet 5 1 tab PO Q4HR PRN 09/28/17 09/28/17 mg/325 mg] - Allergies Allergies/Adverse Reactions: Allergies Allergy/AdvReac Type Severity Reaction Status Date / Time No Known Drug Allergies Allergy Verified 09/28/17 01:08 - Social History Does the pt smoke?: No Smoking Status: Never smoker Does the pt drink ETOH?: No Does the pt have substance abuse?: No - Immunizations Immunizations are current?: Yes - POLST Patient has POLST: No PD ED PE NORMAL - General General: Alert and oriented X 3, No acute distress - HEENT HEENT: Atraumatic, PERRL, EOMI, Ears normal, Other (Intraorally, the patient has no significant gingival inflammation and no intraoral abscess, the patient' s tongue appears to be within normal limits, the floor the mouth is moist and soft and there is no brawny edema. The patient's uvula is midline and nonedematous, there is no posterior pharynx swelling or erythematous changes. There is no intraoral petechiae) - Neck Neck: Other (The patient reports subjective neck swelling, I do not palpate any large structural a symmetric lesions, there is no crepitus, no erythematous changes, no cellulitic changes, no palpable abscesses. There is small palpable lymph nodes but no large nonmobile lymph node.) - Cardiac Cardiac: RRR - Respiratory Respiratory: No respiratory distress - Abdomen Abdomen: Other ( abdomen) - Derm Derm: Normal color - Extremities Extremities: No deformity, No edema - Neuro Neuro: Alert and oriented X 3 - Psych Psych: Normal affect Results - Vitals Vitals: Vital Signs - 24 hr 10/08/17 10/08/17 19:22 21:28 Temperature 36.8 C 36.6 C Heart Rate 92 78 Respiratory 16 12 Rate Blood Pressure 126/64 123/70 O2 Saturation 99 100 Oxygen O2 Source Room air - Labs Labs: Laboratory Tests 10/08/17 10/08/17 20:15 20:15 WBC 5.3 RBC 3.45 L Hgb 10.1 L Hct 30.0 L MCV 87.0 MCH 29.3 MCHC 33.7 RDW 14.1 Plt Count 149 MPV 8.6 Neut # (Auto) 3.1 Lymph # (Auto) 1.5 [place] # (Auto) 0.5 Eos # (Auto) 0.1 Baso # (Auto) 0.0 Absolute Nucleated RBC 0.00 Nucleated RBC % 0.1 Sodium 137 Potassium 3.4 L Chloride 104 Carbon Dioxide 25 Anion Gap 8.0 BUN 5 L Creatinine 0.5 Estimated GFR (MDRD) 157 Glucose 86 Calcium 8.7 Total Bilirubin 0.5 AST 21 ALT 14 Alkaline Phosphatase 144 H Total Protein 6.4 L Albumin 2.9 L Globulin 3.5 Albumin/Globulin Ratio 0.8 L Lipase 31 - Rads (name of study) CT NECK Radiology: Final report received (1. Unremarkable soft tissue neck CT 2. No evidence of a mass, abscess, lymphadenopathy, or inflammatory ) PD MEDICAL DECISION MAKING - ED course ED course: The patient's workup does not reveal an acute etiology that would necessitate admission to the hospital or acute surgical consultation. The patient already is in the process of being worked up by her primary care, OB and oral surgeon. The patient currently is on Augmentin which was prescribed by her OB. I recommended that the patient still undergo the MRI as scheduled for evaluation of TMJ. I discussed warning signs and recommended returning to the emergency department immediately for any worsening or any concerns. - Sepsis Event Vital Signs: Vital Signs - 24 hr 10/08/17 10/08/17 19:22 21:28 Temperature 36.8 C 36.6 C Heart Rate 92 78 Respiratory 16 12 Rate Blood Pressure 126/64 123/70 O2 Saturation 99 100 Oxygen O2 Source Room air Departure - Departure Disposition: 01 Home, Self Care Clinical Impression: Neck swelling Condition: Good Instructions: ED Cervical Adenitis No Abx Tx Follow-Up: Porfirio Billingsley ARNP [Primary Care Provider] - Within 1 week Comments: Please return to the emergency department for worsening symptoms or any concerns
[2017-10-08] MEDS ORDERED: SODIUM CHLORIDE 0.9% 1,000 ML IV ONE (20:19)
[2017-10-08 20:30] LABS: EOSINOPHILS # (AUTO) 0.1 10^3/uL (0.0-0.7); HGB - HEMOGLOBIN 10.1 g/dL (12.0-16.0); LYMPHOCYTES # (AUTO) 1.5 10^3/uL (1.5-3.5); LYMPHOCYTES % (AUTO) 28.7 %; MEAN CORPUSCULAR HEMOGLOBIN 29.3 pg (27.0-31.0); MEAN CORPUSCULAR HGB CONC 33.7 g/dL (32.0-36.0); MEAN PLATELET VOLUME 8.6 fL (7.9-10.8); MONOCYTES # (AUTO) 0.5 10^3/uL (0.0-1.0); MONOCYTES % (AUTO) 10.1 %; NEUTROPHILS # (AUTO) 3.1 10^3/uL (1.5-6.6); NEUTROPHILS % (AUTO) 59.2 %; PLT - PLATELET COUNT 149 10^3/uL (130-450); RED BLOOD COUNT 3.45 10^6/uL (4.20-5.40); RED CELL DISTRIBUTION WIDTH 14.1 % (12.0-15.0); WHITE BLOOD COUNT 5.3 x10^3/uL (4.8-10.8)
[2017-10-08] MEDS ORDERED: IOPAMIDOL-300 100 ML VIAL ONE (20:38)
[2017-10-08 20:43] LABS: ALBUMIN 2.9 g/dL (3.2-5.5); ALBUMIN/GLOBULIN RATIO 0.8 (1.0-2.2); BILIRUBIN,TOTAL 0.5 mg/dL (0.2-1.0); CALCIUM 8.7 mg/dL (8.5-10.3); CREATININE 0.5 mg/dL (0.4-1.0); TOTAL PROTEIN 6.4 g/dL (6.7-8.2)
--- NOTE | 2017-10-08 22:22 | CT Report ---
Procedure Date: 10/08/2017 Accession Number: [id number] / [id number] Procedure: CT - Neck Soft Tissue W/ CPT Code: FULL RESULT: EXAM: CT SOFT TISSUE NECK WITH CONTRAST. EXAM DATE: 10/08/2017 09:17 PM. HISTORY: Neck swelling. COMPARISONS: None. TECHNIQUE: Routine soft tissue neck CT protocol. Reconstructions: Coronal and sagittal. IV contrast: 80 ML ISOVUE 300. In accordance with CT protocol optimization, one or more of the following dose reduction techniques were utilized for this exam: automated exposure control, adjustment of mA and/or KV based on patient size, or use of iterative reconstructive technique. FINDINGS: There is no evidence of a mass lesion or abscess in the neck. There are few normal appearing subcentimeter upper jugular chain lymph nodes and submandibular lymph nodes bilaterally. These are within normal limits. There is no evidence of abnormal cervical lymph node enlargement. There is no necrosis or cystic change within any lymph node. No obvious inflammatory change is appreciated in the neck soft tissues. The visualized intracranial structures and orbits are unremarkable. The nasopharynx, oropharynx, and hypopharynx are unremarkable. Oral cavity and floor of mouth are also unremarkable. The major salivary glands are within normal limits. The laryngeal structures are symmetric and appear normal. The thyroid gland is within normal limits. A 12 mm retention cyst or polyp is noted in the left maxillary sinus. Visualized sinuses and mastoid air cells are otherwise clear. Osseous structures are unremarkable. Lung apices are clear. IMPRESSION: 1. Unremarkable soft tissue neck CT. 2. No evidence of a mass, abscess, lymphadenopathy, or inflammatory change in the neck soft tissues. RADIA
[2017-10-08 23:06] VITALS: BP 120/75
== END 2017-10-08 23:07 | disposition home or self-care (01) ==
LOC: ED 19:14
DX: O99.89 Other specified diseases and conditions complicating pregnancy, childbirth and the puerperium (principal); R22.1 Localized swelling, mass and lump, neck; Z3A.36 36 weeks gestation of pregnancy
CPT/HCPCS: 36415; 70491; 80053; 83690; 85025; 96361; 96374; 99283; A9270; Q9967

== ENCOUNTER 2017-11-06 17:30 | Inpatient (IN) | payer BC, OTHER ==
[2017-11-06] MEDS ORDERED: MORPHINE 10 MG/ML VIAL IM SCH (20:26)
[2017-11-06] MEDS ORDERED: PROMETHAZINE 25 MG/1 ML VIAL IM SCH (20:26)
[2017-11-07] MEDS ORDERED: ONDANSETRON 4 MG/2 ML VIAL IVP PRN ×2 (00:19→02:57)
[2017-11-07] MEDS ORDERED: PENICILLIN G POTASSIUM 5,000,000 UNIT in SODIUM CHLORIDE 0.9% MINIBAG 100 ML IV ONE (00:19)
[2017-11-07] MEDS ORDERED: SODIUM CHLORIDE FLUSH 0.9% 10 ML SYRINGE ONE (00:26)
[2017-11-07] MEDS: LACTATED RINGERS 1,000 ML IV ONE ×2 (00:32→22:30)
[2017-11-07 00:52] LABS: BASOPHILS % (AUTO) 0.5 %; EOSINOPHILS # (AUTO) 0.1 10^3/uL (0.0-0.7); EOSINOPHILS % (AUTO) 0.9 %; HGB - HEMOGLOBIN 9.8 g/dL (12.0-16.0); LYMPHOCYTES # (AUTO) 1.6 10^3/uL (1.5-3.5); LYMPHOCYTES % (AUTO) 25.1 %; MEAN CORPUSCULAR HEMOGLOBIN 27.6 pg (27.0-31.0); MEAN CORPUSCULAR HGB CONC 33.3 g/dL (32.0-36.0); MEAN CORPUSCULAR VOLUME 82.8 fL (81.0-99.0); MEAN PLATELET VOLUME 8.9 fL (7.9-10.8); MONOCYTES # (AUTO) 0.3 10^3/uL (0.0-1.0); MONOCYTES % (AUTO) 5.3 %; NEUTROPHILS # (AUTO) 4.5 10^3/uL (1.5-6.6); NEUTROPHILS % (AUTO) 68.2 %; PLT - PLATELET COUNT 149 10^3/uL (130-450); RED BLOOD COUNT 3.56 10^6/uL (4.20-5.40); RED CELL DISTRIBUTION WIDTH 15.1 % (12.0-15.0); WHITE BLOOD COUNT 6.5 x10^3/uL (4.8-10.8)
[2017-11-07] MEDS ORDERED: fentaNYL 100 MCG/2 ML VIAL IVP SCH (01:00)
[2017-11-07] MEDS ORDERED: LACTATED RINGERS 1,000 ML IV SCH (01:00)
[2017-11-07] MEDS: diphenhydrAMINE INJ 50 MG/ML VIAL IVP PRN ×2 (01:26→08:15)
[2017-11-07] MEDS: SODIUM CHLORIDE FLUSH 0.9% 10 ML SYRINGE IVP SCH ×2 (01:28→08:15)
[2017-11-07] MEDS: SODIUM CHLORIDE FLUSH 0.9% 10 ML SYRINGE IVP PRN ×5 (01:43→18:58)
[2017-11-07] MEDS ORDERED: ePHEDrine 50 MG/ML VIAL IVP ONE (02:24)
[2017-11-07] MEDS ORDERED: fent/BUPIV 2 MCG/0.125% 250 ML EP ONE (02:24)
[2017-11-07] MEDS ORDERED: BUPIVACAINE 0.25% PF 10 ML VIAL ONE (02:25)
--- NOTE | 2017-11-07 02:28 | ANESTHESIA ---
Pre-Anesthesia VS, & Labs - Diagnosis Active Labor - Procedure Vaginal delivery Vital Signs: Temp Pulse Resp BP Pulse Ox 37.1 C 97 16 123/72 99 11/06/17 21:20 11/06/17 23:36 11/06/17 21:20 11/06/17 23:36 11/06/17 21:20 Height 5 ft 6.5 in Weight (kg) 103.056 kg Body Mass Index 35.4 - NPO Other (Patient not NPO for labor) - Is Patient ?: Yes - Lab Results Fish Bones: 11/07/17 00:35 Home Medications and Allergies Home Medications: Ambulatory Orders Medication Instructions Recorded Confirmed raNITIdine [Zantac] 1 tab PO DAILY 09/11/17 Multivitamin [Multiple Vitamins] 1 tab PO DAILY 09/28/17 09/28/17 oxyCODONE/ACET 5/325 [Percocet 5 1 tab PO Q4HR PRN 09/28/17 09/28/17 mg/325 mg] Allergies/Adverse Reactions: Allergies Allergy/AdvReac Type Severity Reaction Status Date / Time No Known Drug Allergies Allergy Verified 09/28/17 01:08 Anes History & Medical History - Anesthetic History Anesthesia Complications: reports: No previous complications Family history of Anesthesia Complications: Denies Family history of Malignant Hyperthermia: Denies - Medical History Cardiovascular: reports: None Pulmonary: reports: None Gastrointestinal: reports: GERD (during ) Urinary: reports: None Neuro: reports: None Musculoskeletal: reports: None Endocrine/Autoimmune: reports: None Blood Disorders: reports: None Skin: reports: None Smoking Status: Never smoker Psychosocial: reports: No issues indicated - Surgical History General: Appendectomy Eyes Ears Nose Throat (EENT): Tonsil/Adenoidectomy - Obstetrical History : 2 Parity: 0 Events: positive: None Complications: positive: None Exam General: Alert, Oriented x3, Cooperative, No acute distress Dental: WNL Mouth Openin Fingerbreadth Neck Mobility: Normal Mallampati classification: II Thyromental Distance: 4-6 cm Respiratory: Lungs clear, Normal breath sounds, No respiratory distress, No accessory muscle use Cardiovascular: Regular rate, Normal S1, Normal S2, No murmurs Mental/Cognitive Status: Alert/Oriented X3, Normal for patient Cognitive Status: Within normal limits Plan Anesthesia Type: Epidural Consent for Procedure(s) Verified and Reviewed: Yes Code Status: Attempt Resuscitation ASA classification: 2-Mild systemic disease Is this case an emergency?: No
[2017-11-07] MEDS ORDERED: fent/BUPIV 2 MCG/0.125% 250 ML EP PRN (02:57)
[2017-11-07] MEDS ORDERED: LACTATED RINGERS 500 ML IV ONE (02:57)
[2017-11-07] MEDS ORDERED: NALOXONE 0.4 MG/ML VIAL IVP PRN (02:57)
[2017-11-07] MEDS ORDERED: ePHEDrine 50 MG/ML VIAL IVP PRN (02:57)
[2017-11-07] MEDS ORDERED: NALBUPHINE 10 MG/ML AMP IVP PRN (02:57)
[2017-11-07] MEDS: PENICILLIN G POTASSIUM 2,500,000 UNIT in SODIUM CHLORIDE 0.9% 100ML 100 ML IV SCH ×4 (05:08→19:28)
--- NOTE | 2017-11-07 12:21 | HISTORY & PHYSICAL EXAMINATION ---
DATE OF SERVICE: 11/07/2017 Physician: Bing De Jesus MD CHIEF COMPLAINT: Labor. HISTORY OF PRESENT ILLNESS: The patient began having painful contractions on 11/06/2017. She had me nstrual type bleeding for a little bit at home, followed by spotting. She was feeling good mov ement at home. No leaking of water. REVIEW OF SYSTEMS: Generally feeling well recently, no problems. PAST MEDICAL HISTORY 1. Depression. 2. Anxiety with history of two psychiatric hospitalizations, see below. 3. TMJ. PAST SURGICAL HISTORY 1. Tonsillectomy. 2. Laparoscopic appendectomy. 3. Dilation and curettage. ALLERGIES: LATEX. MEDICATIONS: vitamins daily. SOCIAL HISTORY: No tobacco, alcohol or drug use. The patient states that she has good support at [facility]. OB HISTORY: The patient is a 22-year-old, G2, P0, at 40 weeks and 6 days by 13-week ultrasound, ector [place] due date of 11/02/2017. Her has been complicated by her mood disorder, group B strep positive, and TMJ and wisdom tooth problems throughout the , requiring multiple rounds of an tibiotics. She also has a prominent pubic arch TMJ. LABORATORY DATA: Her labs were normal. She received a Tdap vaccination. She is Rh positiv e and rubella immune. FAMILY HISTORY: No anesthesia complications. PHYSICAL EXAMINATION VITAL SIGNS: The patient is afebrile, with normal vital signs. GENERAL: Her affect is blunt, and she does not make eye contact with me. ABDOMEN: Soft, gravid and nontender. She is OP presentation by Boris's, and estimated weigh t is difficult to ascertain due to this. I do not feel like this fetus is macrosomic. PELVIC: Sterile vaginal exam, 6 cm dilated, 100% effaced, -2 station. heart tracing: Categor y 1. Wiggins every 3-5 minutes. Those palpate strong. ASSESSMENT: A 22-year-old G2, P0 at 40 weeks and 6 days by a 13- week ultrasound, who is here in spo ntaneous labor. She has had good cervical change: 1. Borderline pelvis and high station: The patient has a narrow pubic arch, and a generally m ildly contracted-feeling pelvis. Her sacrum does feel a bit flatter than usual. The spines are not overly prominent. It is a little bit unusual as well to have a primiparous be [address] ation this high. Because of these things, if the patient does have a stalled second stage, I would n ot do an instrumented delivery. Otherwise, we will keep on checking dilation and descent, and manage accordingly. 2. Group B strep positive: The patient is getting penicillin for this. 3. wellbeing: Reassuring, and the fetus is AGA. 4. Depression/anxiety panic attacks and a history of psychiatric hospitalization x2 times: Don singh, the patient has had ongoing symptoms throughout the , including panic attacks. She wa s offered Zoloft, but was having a hard time taking it, and kind of gave up with this. Overall, this is a desired , and she does not feel nervous about delivery or about becoming a mother. Ho wever, she will not make eye contact with me, and her affect is blunt. She is warming up to her labo r nurse, and is making good eye contact with her. She has never hallucinated. She did have two suic prerna attempts with pills in the past, but nothing in the past three years. Overall, she feels like he r mood is under pretty good control. We will watch her carefully for bonding, and for any flares in her objective or subjective psychiatric symptoms. We will arrange public health to do aixa e visits with her as well. We will also have her followup sooner than usual for a clinic check. 5. Other issues: No issues identified: The patient is status post her Tdap vaccination, and is rubella immune and Rh positive. We will plan for expectant management of this spontaneous la bor. TD: 11/07/2017 11:05
[2017-11-07] MEDS ORDERED: fentaNYL 100 MCG/2 ML VIAL IVP PRN (13:49)
[2017-11-07] MEDS ORDERED: CALCIUM CARBONATE CHEW 500 MG TABLET PO PRN ×2 (14:09→22:57)
--- NOTE | 2017-11-07 14:17 | PROVIDER PROGRESS NOTE ---
Objective - Vital Signs/Intake & Output Intake & Output: Intake & Output 11/04/17 11/05/17 11/06/17 11/07/17 23:59 23:59 23:59 23:59 Intake Total 1300 Output Total 550 Balance 750 - Lab Results Fish Bones: 11/07/17 00:35 Other Labs: Lab Results x24hrs 11/07/17 11/07/17 Range/Units 01:03 00:35 WBC 6.5 (4.8-10.8) x10^3/uL RBC 3.56 L (4.20-5.40) 10^6/uL Hgb 9.8 L (12.0-16.0) g/dL Hct 29.5 L (37.0-47.0) % MCV 82.8 (81.0-99.0) fL MCH 27.6 (27.0-31.0) pg MCHC 33.3 (32.0-36.0) g/dL RDW 15.1 H (12.0-15.0) % Plt Count 149 (130-450) 10^3/uL MPV 8.9 (7.9-10.8) fL Neut # (Auto) 4.5 (1.5-6.6) 10^3/uL Lymph # (Auto) 1.6 (1.5-3.5) 10^3/uL [place] # (Auto) 0.3 (0.0-1.0) 10^3/uL Eos # (Auto) 0.1 (0.0-0.7) 10^3/uL Baso # (Auto) 0.0 (0.0-0.1) 10^3/uL Absolute Nucleated RBC 0.00 x10^3/uL Nucleated RBC % 0.1 /100WBC Blood Type A POSITIVE Antibody Screen NEGATIVE Assessment/Plan - Problem List (1) Post-dates Impression: 22yo P0 at 40w6d in active spontaneous labor. Pt c/o increasing pain since SROM. At first this was "all over" and anesthesia was called. By the time of arrival she c/o mid thoracic pain, symmetric bilaterally, felt like "muscle spasm", has not had similar pain in the past, no cough, no hemoptysis, no FH of VTE, is constant and not pleuritic. AVSS except for elevated BP during episodes of pain last SVE 8/100/-1 about 1h ago SROM clear about 1.5h ago Tracing category 1 Royer not picking up well post SROM. Was q2-3min. A/P: Likely musculoskeletal pain and it feels like a spasm to her. Will treat for GERD to see if that helps. Will also do PIH workup with her mildly elevated BPs. Anesthesia re-bolused epidural to very dense, has a good block, unable to assist further due to location of her back pain. They approved fentanyl IV PRN. Heat and ice PRN. Labor progressing well, descent is present, expectant mgmt. Anxiety disorder with multiple somatic complaints that are distressing to pt and that pt has a hard time coping with--stinging in IV site, upper back pain, catheter discomfort while she didn't feel my fingers at SVE. Supportive care. Labor down as long as possible as pt has no emotional reserve. Qualifiers: Post-term type: 40-42 weeks gestation Qualified Code(s): O48.0 - Post-term
[2017-11-07 14:44] LABS: BASOPHILS % (AUTO) 0.2 %; EOSINOPHILS # (AUTO) 0.1 10^3/uL (0.0-0.7); EOSINOPHILS % (AUTO) 0.9 %; HGB - HEMOGLOBIN 9.7 g/dL (12.0-16.0); LYMPHOCYTES # (AUTO) 1.5 10^3/uL (1.5-3.5); LYMPHOCYTES % (AUTO) 24.2 %; MEAN CORPUSCULAR HEMOGLOBIN 26.9 pg (27.0-31.0); MEAN CORPUSCULAR HGB CONC 32.5 g/dL (32.0-36.0); MEAN CORPUSCULAR VOLUME 82.8 fL (81.0-99.0); MEAN PLATELET VOLUME 8.6 fL (7.9-10.8); MONOCYTES # (AUTO) 0.5 10^3/uL (0.0-1.0); MONOCYTES % (AUTO) 8.1 %; NEUTROPHILS # (AUTO) 4.1 10^3/uL (1.5-6.6); NEUTROPHILS % (AUTO) 66.6 %; PLT - PLATELET COUNT 125 10^3/uL (130-450); RED BLOOD COUNT 3.62 10^6/uL (4.20-5.40); RED CELL DISTRIBUTION WIDTH 15.2 % (12.0-15.0); WHITE BLOOD COUNT 6.1 x10^3/uL (4.8-10.8)
[2017-11-07] MEDS ORDERED: LIDOCAINE 1% 50 ML MDV ONE (14:50)
[2017-11-07] MEDS ORDERED: miSOPROStol 200 MCG TABLET ONE (14:51)
[2017-11-07] MEDS ORDERED: OXYTOCIN/SODIUM CHLORIDE 500 ML IV ONE (14:51)
[2017-11-07] MEDS ORDERED: FAMOTIDINE 20 MG in SODIUM CHLORIDE 0.9% 50 ML IV SCH (15:00)
[2017-11-07] MEDS ORDERED: FAMOTIDINE 20 MG/50 ML 50 ML IV SCH (15:00)
[2017-11-07 15:02] LABS: ALBUMIN 2.7 g/dL (3.2-5.5); BILIRUBIN,TOTAL 0.2 mg/dL (0.2-1.0); CALCIUM 8.2 mg/dL (8.5-10.3); CREATININE 0.6 mg/dL (0.4-1.0); TOTAL PROTEIN 5.5 g/dL (6.7-8.2)
[2017-11-07 15:18] LABS: TOTAL PROTEIN,URINE TIMED < 6 mg/dL
--- NOTE | 2017-11-07 15:22 | PROVIDER PROGRESS NOTE ---
Objective - Vital Signs/Intake & Output Intake & Output: Intake & Output 11/04/17 11/05/17 11/06/17 11/07/17 23:59 23:59 23:59 23:59 Intake Total 1300 Output Total 950 Balance 350 - Lab Results Fish Bones: 11/07/17 14:40 11/07/17 14:40 Other Labs: Lab Results x24hrs 11/07/17 11/07/17 11/07/17 Range/Units 14:51 14:40 14:40 WBC 6.1 (4.8-10.8) x10^3/uL RBC 3.62 L (4.20-5.40) 10^6/uL Hgb 9.7 L (12.0-16.0) g/dL Hct 29.9 L (37.0-47.0) % MCV 82.8 (81.0-99.0) fL MCH 26.9 L (27.0-31.0) pg MCHC 32.5 (32.0-36.0) g/dL RDW 15.2 H (12.0-15.0) % Plt Count 125 L (130-450) 10^3/uL MPV 8.6 (7.9-10.8) fL Neut # (Auto) 4.1 (1.5-6.6) 10^3/uL Lymph # (Auto) 1.5 (1.5-3.5) 10^3/uL [place] # (Auto) 0.5 (0.0-1.0) 10^3/uL Eos # (Auto) 0.1 (0.0-0.7) 10^3/uL Baso # (Auto) 0.0 (0.0-0.1) 10^3/uL Absolute Nucleated RBC 0.00 x10^3/uL Nucleated RBC % 0.0 /100WBC Sodium 137 (135-145) mmol/L Potassium 3.2 L (3.5-5.0) mmol/L Chloride 107 (101-111) mmol/L Carbon Dioxide 22 (21-32) mmol/L Anion Gap 8.0 (6-13) BUN 6 (6-20) mg/dL Creatinine 0.6 (0.4-1.0) mg/dL Estimated GFR (MDRD) 127 (>89) Glucose 82 (70-100) mg/dL Calcium 8.2 L (8.5-10.3) mg/dL Total Bilirubin 0.2 (0.2-1.0) mg/dL AST 27 (10-42) IU/L ALT 16 (10-60) IU/L Alkaline Phosphatase 156 H (42-121) IU/L Total Protein 5.5 L (6.7-8.2) g/dL Albumin 2.7 L (3.2-5.5) g/dL Globulin 2.8 (2.1-4.2) g/dL Albumin/Globulin Ratio 1.0 (1.0-2.2) Urine Creatinine 43.0 mg/dL Ur Total Protein Timed < 6 mg/dL Protein/Creatinin Ratio Not Reportable Blood Type Antibody Screen 11/07/17 11/07/17 Range/Units 01:03 00:35 WBC 6.5 (4.8-10.8) x10^3/uL RBC 3.56 L (4.20-5.40) 10^6/uL Hgb 9.8 L (12.0-16.0) g/dL Hct 29.5 L (37.0-47.0) % MCV 82.8 (81.0-99.0) fL MCH 27.6 (27.0-31.0) pg MCHC 33.3 (32.0-36.0) g/dL RDW 15.1 H (12.0-15.0) % Plt Count 149 (130-450) 10^3/uL MPV 8.9 (7.9-10.8) fL Neut # (Auto) 4.5 (1.5-6.6) 10^3/uL Lymph # (Auto) 1.6 (1.5-3.5) 10^3/uL [place] # (Auto) 0.3 (0.0-1.0) 10^3/uL Eos # (Auto) 0.1 (0.0-0.7) 10^3/uL Baso # (Auto) 0.0 (0.0-0.1) 10^3/uL Absolute Nucleated RBC 0.00 x10^3/uL Nucleated RBC % 0.1 /100WBC Sodium (135-145) mmol/L Potassium (3.5-5.0) mmol/L Chloride (101-111) mmol/L Carbon Dioxide (21-32) mmol/L Anion Gap (6-13) BUN (6-20) mg/dL Creatinine (0.4-1.0) mg/dL Estimated GFR (MDRD) (>89) Glucose (70-100) mg/dL Calcium (8.5-10.3) mg/dL Total Bilirubin (0.2-1.0) mg/dL AST (10-42) IU/L ALT (10-60) IU/L Alkaline Phosphatase (42-121) IU/L Total Protein (6.7-8.2) g/dL Albumin (3.2-5.5) g/dL Globulin (2.1-4.2) g/dL Albumin/Globulin Ratio (1.0-2.2) Urine Creatinine mg/dL Ur Total Protein Timed mg/dL Protein/Creatinin Ratio Blood Type A POSITIVE Antibody Screen NEGATIVE Assessment/Plan - Problem List (1) Post-dates Impression: More comfortable now. SVE ant lip/0 station NST cat 1 Normal Cr, AST, ALT. Neg P:C ratio. Plts dropped to 120s. K is slightly low. No evidence of preeclampsia, mid thoracic back pain has resolved. Thrombocytopenia likely due to labor changes, will follow PP. Watch for any worsening of PIH sx. Qualifiers: Post-term type: 40-42 weeks gestation Qualified Code(s): O48.0 - Post-term
[2017-11-07] MEDS: fentaNYL 100 MCG/2 ML VIAL IVP PRN ×2 (17:41→18:58)
[2017-11-07] MEDS ORDERED: CAPSAICIN 0.025% CREAM 60 GM TUBE TOP PRN (17:45)
[2017-11-07] MEDS ORDERED: ROPIVACAINE 0.2% PF 20 ML AMPULE ONE (18:28)
[2017-11-07] MEDS ORDERED: WITCH HAZEL/GLYCERIN 1 EACH MED..PAD TOP PRN (22:57)
[2017-11-07] MEDS ORDERED: OXYTOCIN/SODIUM CHLORIDE 250 ML IV ONE (22:57)
[2017-11-07] MEDS ORDERED: HYDROCORTISONE/PRAMOXINE 10 GM PR PRN (22:57)
[2017-11-07] MEDS ORDERED: SIMETHICONE CHEW 80 MG TABLET PO PRN (22:57)
[2017-11-07] MEDS ORDERED: ONDANSETRON ODT 4 MG TABLET TL PRN (22:57)
[2017-11-07] MEDS ORDERED: FAMOTIDINE 20 MG TABLET PO PRN (22:57)
[2017-11-07] MEDS ORDERED: diphenhydrAMINE 25 MG CAPSULE PO PRN (22:57)
[2017-11-07] MEDS ORDERED: IBUPROFEN 600 MG TABLET PO SCH (23:00)
[2017-11-08] MEDS ORDERED: SODIUM CHLORIDE FLUSH 0.9% 10 ML SYRINGE ONE (04:27)
--- NOTE | 2017-11-08 04:37 | PROCEDURE REPORT ---
DATE OF SERVICE: 11/07/2017 Physician: Bing De Jesus MD PROCEDURE: Spontaneous vaginal delivery at term. PREDELIVERY DIAGNOSES 1. Intrauterine at 40 weeks and 6 days. 2. Group B streptococcus positive. 3. Active spontaneous labor. POSTDELIVERY DIAGNOSES 1. Status post spontaneous vaginal delivery. 2. Low-grade maternal temperature, maternal tachycardia, and tachycardia. 3. Thoracic muscular spasm. PHYSICIAN: Bing De Jesus M.D. ANESTHESIA: Epidural. ESTIMATED BLOOD: 50 mL COUNTS: Correct x2. COMPLICATIONS: None apparent. FINDINGS 1. Clear amniotic fluid, followed by terminal meconium. 2. Liveborn female. Weight is pending. Apgars are 9 at one minute and 10 at five minutes. 3. Superficial introitus laceration from 6 o'clock to 8 o'clock, not requiring repair. LABOR COURSE: Patient is a 22-year-old G2, now P1, who was admitted at 40 weeks and 6 days with active spontaneous labor. She received an epidural for pain control. Throughout her labor, she had problems with a variety of somatic complaints that were quite distressing to her, probably because of her anxiety disorder. This included a complaint of severe thoracic back pain in the mid thoracic area and equal on both sides. Ultimately, I do believe that this was due to a muscle spasm. When patient's contraction pains were controlled, she had a normal heart rate, and was resting and breathing comfortably in bed. She did not have any emesis, coughing, hemoptysis, lower extremity asymmetric edema, or abdominal tenderness. She had a category 1 tracing throughout her labor, except for a few variable decelerations until her second stage of labor, and there was no loss of station. I also did a [facility] workup to evaluate her liver. Her LFTs were normal, as were her creatinine and her protein to creatinine ratio. Her platelets were slightly lower than they were on admission at the 120s. The patient was normotensive, except for a handful of elevated blood pressures while in pain. After delivery, this back pain had resolved completely. DELIVERY COURSE: Patient labored down for 5 hours. During this time, she had good descent from the skull at 0 station to the skull at +2.5 station. Her emotional reserves were minimal, so we wanted to shorten her pushing phase as much as possible. She had remained afebrile, not tachycardic, and relatively comfortable during this time. After 5 hours and no urge to push, we decided to go ahead and start pushing. She pushed for 45 minutes to deliver in OA position. There was no nuchal cord. The shoulders were delivered transverse. The baby was placed on mom's abdomen for warming, drying and stimulation. The umbilical cord was left intact. It stopped pulsating in about 2 minutes. The umbilical cord was clamped x2 and cut by the father of the baby at that time. Cord blood was obtained for typing. No gases were required. Inspection revealed the laceration at the introitus that was about 2 mm deep and not bleeding, and so this was not repaired. EBL was scant at 50 mL. The placenta was delivered at about 15 minutes with cord traction and a maternal punch. Fundus was firm and at the umbilicus postdelivery. Her bladder had not been emptied in a while, so this was straight catheterized by myself for 300 mL of yellow urine. Bleeding was very scant. Patient was paying close attention to her baby and cuddling her appropriately. During the pushing phase, there was a trend toward chorioamnionitis, but they did not meet true diagnostic criteria. Maximum temperature was at 100.3--this was noted about 20min prior to delivery and she had been afebrile hourly prior to that. There was maternal and tachycardia present for about 40 minutes prior to delivery. There was no foul odor when the placenta was delivered. Peds will be notified about the temperature and the tachycardia. We will remain vigilant for any signs of endomyometritis. The placenta will be sent to Pathology. ANTICIPATED COURSE: We will watch mood closely and also assess for any developing infection. Otherwise, anticipate routine primipara care. TD: 11/07/2017 23:32 THUAN
[2017-11-08 06:39] LABS: BASOPHILS % (AUTO) 0.1 %; EOSINOPHILS % (AUTO) 0.6 %; HGB - HEMOGLOBIN 8.6 g/dL (12.0-16.0); LYMPHOCYTES # (AUTO) 1.2 10^3/uL (1.5-3.5); LYMPHOCYTES % (AUTO) 15.1 %; MEAN CORPUSCULAR HEMOGLOBIN 26.7 pg (27.0-31.0); MEAN CORPUSCULAR HGB CONC 32.2 g/dL (32.0-36.0); MEAN PLATELET VOLUME 8.6 fL (7.9-10.8); MONOCYTES # (AUTO) 0.8 10^3/uL (0.0-1.0); MONOCYTES % (AUTO) 10.7 %; NEUTROPHILS # (AUTO) 5.7 10^3/uL (1.5-6.6); NEUTROPHILS % (AUTO) 73.5 %; PLT - PLATELET COUNT 105 10^3/uL (130-450); RED BLOOD COUNT 3.22 10^6/uL (4.20-5.40); RED CELL DISTRIBUTION WIDTH 15.4 % (12.0-15.0); WHITE BLOOD COUNT 7.8 x10^3/uL (4.8-10.8)
[2017-11-08 06:57] LABS: ALBUMIN 2.2 g/dL (3.2-5.5); ALBUMIN/GLOBULIN RATIO 0.8 (1.0-2.2); ALKALINE PHOSPHATASE 142 IU/L (42-121); ALT ALANINE AMINOTRANSFERASE 14 IU/L (10-60); AST ASPARTATE AMINOTRANSFERASE 30 IU/L (10-42); BILIRUBIN,TOTAL 0.4 mg/dL (0.2-1.0); BUN - BLOOD UREA NITROGEN < 5 mg/dL (6-20); CARBON DIOXIDE - CO2 23 mmol/L (21-32); CHLORIDE 108 mmol/L (101-111); CREATININE 0.6 mg/dL (0.4-1.0); GFR - MDRD 127 (>89); GLUCOSE 100 mg/dL (70-100); SODIUM 138 mmol/L (135-145); TOTAL PROTEIN 4.8 g/dL (6.7-8.2)
[2017-11-08] MEDS: ACETAMINOPHEN 500 MG TABLET PO SCH ×2 (08:00→14:28)
--- NOTE | 2017-11-08 14:23 | PROVIDER PROGRESS NOTE ---
Objective - Vital Signs/Intake & Output Vital Signs: Vital Signs x48h Temp Pulse Resp BP Pulse Ox 11/08/17 11:58 98.2 F 78 18 116/56 L 99 11/08/17 08:06 98.4 F 75 16 117/54 L 99 Intake & Output: Intake & Output 11/05/17 11/06/17 11/07/17 11/08/17 23:59 23:59 23:59 23:59 Intake Total 1400 240 Output Total 1225 1250 Balance 175 -1010 - Lab Results Fish Bones: 11/08/17 06:30 11/08/17 06:30 Other Labs: Lab Results x24hrs 11/08/17 11/08/17 11/07/17 Range/Units 06:30 06:30 14:51 WBC 7.8 (4.8-10.8) x10^3/uL RBC 3.22 L (4.20-5.40) 10^6/uL Hgb 8.6 L (12.0-16.0) g/dL Hct 26.7 L (37.0-47.0) % MCV 83.0 (81.0-99.0) fL MCH 26.7 L (27.0-31.0) pg MCHC 32.2 (32.0-36.0) g/dL RDW 15.4 H (12.0-15.0) % Plt Count 105 L (130-450) 10^3/uL MPV 8.6 (7.9-10.8) fL Neut # (Auto) 5.7 (1.5-6.6) 10^3/uL Lymph # (Auto) 1.2 L (1.5-3.5) 10^3/uL Tama # (Auto) 0.8 (0.0-1.0) 10^3/uL Eos # (Auto) 0.0 (0.0-0.7) 10^3/uL Baso # (Auto) 0.0 (0.0-0.1) 10^3/uL Absolute Nucleated RBC 0.00 x10^3/uL Nucleated RBC % 0.0 /100WBC Sodium 138 (135-145) mmol/L Potassium 3.0 L (3.5-5.0) mmol/L Chloride 108 (101-111) mmol/L Carbon Dioxide 23 (21-32) mmol/L Anion Gap 7.0 (6-13) BUN < 5 L (6-20) mg/dL Creatinine 0.6 (0.4-1.0) mg/dL Estimated GFR (MDRD) 127 (>89) Glucose 100 (70-100) mg/dL Calcium 8.0 L (8.5-10.3) mg/dL Total Bilirubin 0.4 (0.2-1.0) mg/dL AST 30 (10-42) IU/L ALT 14 (10-60) IU/L Alkaline Phosphatase 142 H (42-121) IU/L Total Protein 4.8 L (6.7-8.2) g/dL Albumin 2.2 L (3.2-5.5) g/dL Globulin 2.6 (2.1-4.2) g/dL Albumin/Globulin Ratio 0.8 L (1.0-2.2) Urine Creatinine 43.0 mg/dL Ur Total Protein Timed < 6 mg/dL Protein/Creatinin Ratio Not Reportable 11/07/17 11/07/17 Range/Units 14:40 14:40 WBC 6.1 (4.8-10.8) x10^3/uL RBC 3.62 L (4.20-5.40) 10^6/uL Hgb 9.7 L (12.0-16.0) g/dL Hct 29.9 L (37.0-47.0) % MCV 82.8 (81.0-99.0) fL MCH 26.9 L (27.0-31.0) pg MCHC 32.5 (32.0-36.0) g/dL RDW 15.2 H (12.0-15.0) % Plt Count 125 L (130-450) 10^3/uL MPV 8.6 (7.9-10.8) fL Neut # (Auto) 4.1 (1.5-6.6) 10^3/uL Lymph # (Auto) 1.5 (1.5-3.5) 10^3/uL Tama # (Auto) 0.5 (0.0-1.0) 10^3/uL Eos # (Auto) 0.1 (0.0-0.7) 10^3/uL Baso # (Auto) 0.0 (0.0-0.1) 10^3/uL Absolute Nucleated RBC 0.00 x10^3/uL Nucleated RBC % 0.0 /100WBC Sodium 137 (135-145) mmol/L Potassium 3.2 L (3.5-5.0) mmol/L Chloride 107 (101-111) mmol/L Carbon Dioxide 22 (21-32) mmol/L Anion Gap 8.0 (6-13) BUN 6 (6-20) mg/dL Creatinine 0.6 (0.4-1.0) mg/dL Estimated GFR (MDRD) 127 (>89) Glucose 82 (70-100) mg/dL Calcium 8.2 L (8.5-10.3) mg/dL Total Bilirubin 0.2 (0.2-1.0) mg/dL AST 27 (10-42) IU/L ALT 16 (10-60) IU/L Alkaline Phosphatase 156 H (42-121) IU/L Total Protein 5.5 L (6.7-8.2) g/dL Albumin 2.7 L (3.2-5.5) g/dL Globulin 2.8 (2.1-4.2) g/dL Albumin/Globulin Ratio 1.0 (1.0-2.2) Urine Creatinine mg/dL Ur Total Protein Timed mg/dL Protein/Creatinin Ratio Assessment/Plan - Problem List (1) Post-dates Impression: S: got up from toilet and had to sit down on way back to bed due to a headache. Sitting helped it to resolve. No current headache while laying or while sitting. Thoracic pain has resolved. Eating, ambulating, urinating OK. going well except for nipple cracking. No heavy bleeding. Mood feels stable. O: AVSS. Making some eye contact with me. Glancing at baby who is sleeping comfortably in bassinet. Abd soft, nt/nd. Fundus firm, NT, 2cm below U. Trace LE edema bilat. K lower at 3.0 A/P: 22yo P1 PPD #1 s/p at term --Cracked nipple: check latch q feed, pt using comfort measures --GONZALEZ: resolved, no probs with sitting, doubt spinal headache, likely due to hypotension after standing quickly --Dep/anx: stable and pt is showing appropriate bonding --Thoracic pain: resolved --Hypokalemia: will treat --Near chorio at : no signs of endomyometritis --Thrombocytopenia: plts continue to drift down. Pt is normotensive without current PIH sx, AST and ALT are normal today. Still likely gestational. Otherwise routine care. Qualifiers: Post-term type: 40-42 weeks gestation Qualified Code(s): O48.0 - Post-term
[2017-11-08] MEDS ORDERED: ACETAMINOPHEN 500 MG TABLET PO PRN ×2 (14:31→14:34)
[2017-11-08] MEDS ORDERED: IBUPROFEN 400 MG TABLET PO PRN (14:31)
[2017-11-08] MEDS: POTASSIUM CHLORIDE 20 MEQ/15 ML UDC PO SCH (15:01)
[2017-11-08] MEDS ORDERED: KETOROLAC 60 MG/2 ML VIAL IM STA (23:40)
[2017-11-08] MEDS ORDERED: LIDOCAINE JELLY 2% 30 ML TUBE TOP PRN (23:43)
[2017-11-09] MEDS ORDERED: KETOROLAC 30 MG/ML VIAL ONE (00:05)
[2017-11-09] MEDS ORDERED: LIDOCAINE JELLY 2% 5 ML TUBE TOP PRN (00:37)
[2017-11-09 07:13] LABS: ALBUMIN 2.5 g/dL (3.2-5.5); ALBUMIN/GLOBULIN RATIO 0.9 (1.0-2.2); BILIRUBIN,TOTAL 0.2 mg/dL (0.2-1.0); CALCIUM 8.5 mg/dL (8.5-10.3); CREATININE 0.7 mg/dL (0.4-1.0); TOTAL PROTEIN 5.4 g/dL (6.7-8.2)
[2017-11-09] MEDS: DOCUSATE SODIUM 100 MG CAPSULE PO SCH ×2 (09:05→21:58)
--- NOTE | 2017-11-09 11:32 | PROVIDER PROGRESS NOTE ---
Objective - Vital Signs/Intake & Output Vital Signs: Vital Signs x48h Temp Pulse Resp BP Pulse Ox 11/09/17 08:06 97.7 F 52 L 16 110/58 L 100 11/09/17 04:47 97.3 F L 68 16 107/63 100 Intake & Output: Intake & Output 11/06/17 11/07/17 11/08/17 11/09/17 23:59 23:59 23:59 23:59 Intake Total 1400 240 Output Total 1225 1250 Balance 175 -1010 - Lab Results Fish Bones: 11/09/17 06:58 11/09/17 06:58 Other Labs: Lab Results x24hrs 11/09/17 11/09/17 Range/Units 06:58 06:58 Plt Count 111 L (130-450) 10^3/uL Sodium 140 (135-145) mmol/L Potassium 3.3 L (3.5-5.0) mmol/L Chloride 106 (101-111) mmol/L Carbon Dioxide 27 (21-32) mmol/L Anion Gap 7.0 (6-13) BUN 8 (6-20) mg/dL Creatinine 0.7 (0.4-1.0) mg/dL Estimated GFR (MDRD) 107 (>89) Glucose 79 (70-100) mg/dL Calcium 8.5 (8.5-10.3) mg/dL Total Bilirubin 0.2 (0.2-1.0) mg/dL AST 31 (10-42) IU/L ALT 18 (10-60) IU/L Alkaline Phosphatase 138 H (42-121) IU/L Total Protein 5.4 L (6.7-8.2) g/dL Albumin 2.5 L (3.2-5.5) g/dL Globulin 2.9 (2.1-4.2) g/dL Albumin/Globulin Ratio 0.9 L (1.0-2.2) Assessment/Plan - Problem List (1) Post-dates Impression: S: sleeping and not really wanting to wake up. No new problems. No heavy bleeding, no CP, no GONZALEZ. O: AVSS x for periods of HR last night 40-50s Sleeping but arousable, NAD Abd soft, nt/nd Fundus firm, nt at umbilicus A/P: 22yo P1 PPD#2 s/p at term with multiple issues (see below) requiring ongoing inpatient care. No routine issues present other than issues. Qualifiers: Post-term type: 40-42 weeks gestation Qualified Code(s): O48.0 - Post-term (2) Generalized anxiety disorder with panic attacks Impression: Pt has a very difficult time coping and can go from OK to inconsolable in a short period of time. She is . I think she would benefit from an alpha damon but will have to check with internal medicine. Also would not do alpha damon while . SSRIs don't help pt per her report and she declines to try. She is bonding with baby, has husb support, but he is not effective at problem-solving while she is in a panic "crisis". Social work consult today. Public health home visits arranged. (3) Positional headache Impression: Resolved, no evidence of spinal headache (4) Thoracic back pain Impression: Resolved. Mid-thoracic back pain present during labor, was 10/10, associated with HR in 140-150s. HR normalized with pain control. Had normal PIH workup. No thoracic pain since delivery. (5) Thrombocytopenia affecting Impression: Likely gestational, plts are trending back upward today, no evidence of preeclampsia. (6) Bradycardia Impression: Likely normal in this currently asymptomatic young woman. EKG normal. Will get hospitalist consult. (7) Hypokalemia Impression: Of unclear etiology, replaced 20mEq yesterday and will repeat again today.
[2017-11-09] MEDS: POTASSIUM CHLORIDE 20 MEQ/15 ML UDC PO SCH (14:23)
[2017-11-09] MEDS ORDERED: MAGNESIUM OXIDE 400 MG TABLET PO SCH (23:35)
--- NOTE | 2017-11-10 00:50 | CONSULTATION NOTE ---
DATE OF SERVICE: 11/09/2017 Physician: Lia Eubanks MD HISTORY OF PRESENT ILLNESS: This is a 22-year-old white female who has just delivered a child 2 days ago and it was a normal delivery; however, the baby is under bilirubin lights. The patient has a past medical history of depression, with 2 remote suicide attempts. The patient tells me that she is not on any medications for depression and was only taking vitamins, but nothing now. The THERAPEUTIC MASSAGE TECHNICIAN doctor called me today to request a consult for bradycardia, which is found on her vital sign checks. The patient denies any history of cardiac problems, she was able to partake in gym when she was in public school. She denies ever needing a stress test, echo or EKG. She was never told by her PCP that she has bradycardia during routine visits. The patient had 1 episode of syncope when she was 16, which occurred after she fasted for over a day, she sought no medical attention for this, awoke and continued her daily activity. She denies any episodes of dizziness now, chest pain, shortness of breath, leg edema, palpitations. She does remember there were episodes of "racing heart whenever she would lie down or sit down quickly" this occurring at the end of and when she had just eaten. She never needed a Holter monitor evaluation. PAST MEDICAL HISTORY: Depression with 2 past suicide attempts. ALLERGIES: LATEX. HOME MEDICATIONS: 1. Zantac. 2. Percocet. 3. Multivitamins. HOSPITAL MEDICATIONS: 1. Tylenol p.r.n. 2. Tums p.r.n. 3. Benadryl p.r.n. 4. Colace 100 mg b.i.d. 5. Pepcid 20 mg p.r.n. 6. Epifoam spray q.i.d. p.r.n. 7. Xylocaine jelly topically p.r.n. 8. Zofran p.r.n. 9. Potassium chloride 20 mEq daily. 10. Simethicone orally p.r.n. 11. Tucks pads p.r.n. SOCIAL HISTORY: The patient is a nonsmoker, who never smoked, drinks no alcohol, denies any illicit drug use. FAMILY HISTORY: No cardiac disease. REVIEW OF SYSTEMS: The patient is not someone who exercises such as marathon running or active gym exercises. Comprehensive review of systems was performed and the pertinent positives are in the HPI, the rest are negative. PHYSICAL EXAMINATION: GENERAL: Young white female. She is mildly obese. VITAL SIGNS: Blood pressure 104/58, pulse is between 54 and 70. She is in sinus rhythm, afebrile, room air saturation 98%. HEENT: Reveals skin pallor. Moist oral mucosa. NECK: Without JVD or carotid bruits. LUNGS: Clear. HEART: Heart sounds normal. No murmurs. ABDOMEN: Soft, nontender. EXTREMITIES: No clubbing, cyanosis and there is trace pedal edema. NEUROLOGIC: Intact. LABORATORY DATA: Recent labs have shown potassium of between 3.0 and 3.3, normal liver test, low albumin of 2.5. She is anemic with a hemoglobin of 9.8, yesterday it was down to 8.6. Her platelet count was normal 2 days ago at 149, there has been a small drop down to 111 today. Urinalysis showed a urine creatinine of 43. EKG: Sinus bradycardia at a rate of 54 and inverted T-wave in lead III only, no other abnormalities. There is no old EKG available for comparison. IMPRESSION/DIAGNOSES.: 1. Bradycardia. 2. Hypokalemia, etiology unclear. 3. Thrombocytopenia, etiology unclear. 4. Status post delivery of a healthy fetus. PLAN: Start the patient on telemetry to document her heart rate by monitor and look at the trend as far as bradycardia. The bradycardia is not severe and asymptomatic. I suspect that the hypokalemia or one of her medications may have added to the bradycardia. Check thyroid function test to rule out hypothyroidism as the cause of the bradycardia. Obtain an Echo to rule out structural heart disease. Further recommendations will depend on her course. Thank you for allowing me to participate in the care of this patient. TD: 11/09/2017 20:28 THUAN
[2017-11-10 06:57] LABS: BASOPHILS % (AUTO) 0.3 %; EOSINOPHILS # (AUTO) 0.2 10^3/uL (0.0-0.7); EOSINOPHILS % (AUTO) 3.4 %; HGB - HEMOGLOBIN 8.9 g/dL (12.0-16.0); LYMPHOCYTES # (AUTO) 1.7 10^3/uL (1.5-3.5); LYMPHOCYTES % (AUTO) 30.2 %; MEAN CORPUSCULAR HGB CONC 32.2 g/dL (32.0-36.0); MEAN CORPUSCULAR VOLUME 83.7 fL (81.0-99.0); MEAN PLATELET VOLUME 9.1 fL (7.9-10.8); MONOCYTES # (AUTO) 0.3 10^3/uL (0.0-1.0); NEUTROPHILS # (AUTO) 3.3 10^3/uL (1.5-6.6); NEUTROPHILS % (AUTO) 60.1 %; PLT - PLATELET COUNT 107 10^3/uL (130-450); RED CELL DISTRIBUTION WIDTH 15.4 % (12.0-15.0); WHITE BLOOD COUNT 5.5 x10^3/uL (4.8-10.8)
[2017-11-10 06:59] LABS: CALCIUM 8.4 mg/dL (8.5-10.3); CREATININE 0.5 mg/dL (0.4-1.0)
[2017-11-10 07:22] LABS: THYROID STIMULATING HORMONE 4.49 uIU/mL (0.34-5.60)
[2017-11-10 07:24] LABS: FREE T4 (FREE THYROXINE) 0.73 ng/dL (0.58-1.64)
--- NOTE | 2017-11-10 08:19 | PROVIDER PROGRESS NOTE ---
Assessment/Plan - Problem List (1) Bradycardia Assessment/Plan: Telemetry reviewed: Pt is able to mount a HR response to activity. Thyroid funtion tests are normal, ruling out Hypothyroidism. Awaiting Echo result>> was essentially normal without structural heart disease. Continue telemetry today>>> I discussed the above with Dr De Jesus and will sign off the case. (2) Chest pain Assessment/Plan: EKG showed no new or ischemic changes when done at 2312 last night. Troponin was normal. Awaiting Echo to be done today >>> was essentially normal. The patient described the feeling as "feeling her heart beating", that awoke her, not a discomfort of any kind. (3) Hypokalemia Assessment/Plan: This may be adding to bradycardia. Low K needs replacement. (4) Hypomagnesemia Assessment/Plan: This may be adding to bradycardia. Low Mg needs replacement. (5) Anemia Assessment/Plan: Will check B12, Folate levels and Iron panel and replace if low. >>> Iron is low. I discussed with patient and Dr De Jesus, regarding replacement if OK with OBGYN and Peds. - Current Meds Current Meds: Current Medications Generic Name Dose Route Start Last Admin Trade Name Freq PRN Reason Stop Dose Admin Docusate Sodium 100 mg 11/08/17 09:00 11/09/17 21:58 Colace 100mg Capsule PO 100 mg BID DEB Administration Lidocaine HCl 2.5 ml 11/09/17 00:37 11/09/17 01:14 Xylocaine Jelly 2% TOP 2.5 ml Q4H PRN Administration pain from cracked nipples Potassium Chloride 20 meq 11/08/17 15:00 11/09/17 14:23 PO 20 meq DAILYWM DEB Administration - Lab Result Fish Bone Diagrams: 11/10/17 06:15 11/10/17 06:15 - EKG Results EKG Interpreted Independently: Yes EKG Comparison: Unchanged from prior EKG EKG Findings: Normal sinus rhythm at 64, inverted T wave in lead III only (normal variant), therefore WNL. - Additional Planning My Orders: My Active Orders 11/09/17 14:44 Telemetry- [RC] Q4HR 11/09/17 14:45 Echo Transthoracic Complete [ECHO] Routine Subjective - Subjective Patient Reports: Other (Patient had chest pain overnight and was seen by tg Chief Medical Physicist from Internal Medicine.) Nursing Reports: Other (Per RN note last night "Pt on telemetry due to episode of bradycardia today. Report received [address] depression at 19:20 and 20:10. Pt had episode of chest pain that awakened her at 2142. She described "slow heart rate and feeling chest pain" subsequently felt dizzy." BP was 116/62, HR 55 in NSR.) Objective Vital Signs: Vital Signs - 24 hr 11/09/17 11/09/17 11/09/17 12:00 16:34 20:30 Temperature 36.5 C 37.0 C 36.7 C Heart Rate [ 67 72 66 Brachial] Respiratory 15 18 13 Rate Blood Pressure 109/67 112/64 106/64 [Right Brachial artery] O2 Saturation 99 99 100 11/09/17 11/10/17 11/10/17 21:45 00:21 04:30 Temperature 36.5 C Heart Rate [ 55 L 76 64 Brachial] Respiratory 13 13 16 Rate Blood Pressure 116/62 109/53 L 110/49 L [Right Brachial artery] O2 Saturation 99 99 98 11/10/17 11/10/17 04:31 06:42 Temperature Heart Rate [ 57 L Brachial] Respiratory 13 Rate Blood Pressure 99/55 L 98/60 [Right Brachial artery] O2 Saturation 100 Oxygen O2 Source Room air I&O (Last 24 Hrs): Intake and Output Totals x24h 11/08/17 11/09/17 11/10/17 23:59 23:59 23:59 Intake Total 240 Output Total 1250 Balance -1010 General: Alert, Oriented x3 HEENT: Other (Appears pale) Neck: Supple Neuro: Non Focal Cardiovascular: Regular rate Respiratory: No respiratory distress Abdomen: Soft Extremities: Other (Trace edema) - Results Results: Laboratory Results WBC 5.5 x10^3/uL (4.8-10.8) 11/10/17 06:15 RBC 3.30 10^6/uL (4.20-5.40) L 11/10/17 06:15 Hgb 8.9 g/dL (12.0-16.0) L 11/10/17 06:15 Hct 27.6 % (37.0-47.0) L 11/10/17 06:15 MCV 83.7 fL (81.0-99.0) 11/10/17 06:15 MCH 27.0 pg (27.0-31.0) 11/10/17 06:15 MCHC 32.2 g/dL (32.0-36.0) 11/10/17 06:15 RDW 15.4 % (12.0-15.0) H 11/10/17 06:15 Plt Count 107 10^3/uL (130-450) L 11/10/17 06:15 MPV 9.1 fL (7.9-10.8) 11/10/17 06:15 Neut # (Auto) 3.3 10^3/uL (1.5-6.6) 11/10/17 06:15 Lymph # (Auto) 1.7 10^3/uL (1.5-3.5) 11/10/17 06:15 Karnes # (Auto) 0.3 10^3/uL (0.0-1.0) 11/10/17 06:15 Eos # (Auto) 0.2 10^3/uL (0.0-0.7) 11/10/17 06:15 Baso # (Auto) 0.0 10^3/uL (0.0-0.1) 11/10/17 06:15 Absolute Nucleated RBC 0.00 x10^3/uL 11/10/17 06:15 Nucleated RBC % 0.1 /100WBC 11/10/17 06:15 Sodium 139 mmol/L (135-145) 11/10/17 06:15 Potassium 3.4 mmol/L (3.5-5.0) L 11/10/17 06:15 Chloride 107 mmol/L (101-111) 11/10/17 06:15 Carbon Dioxide 25 mmol/L (21-32) 11/10/17 06:15 Anion Gap 7.0 (6-13) 11/10/17 06:15 BUN 8 mg/dL (6-20) 11/10/17 06:15 Creatinine 0.5 mg/dL (0.4-1.0) 11/10/17 06:15 Estimated GFR (MDRD) 157 (>89) 11/10/17 06:15 Glucose 83 mg/dL (70-100) 11/10/17 06:15 Calcium 8.4 mg/dL (8.5-10.3) L 11/10/17 06:15 Magnesium 1.4 mg/dL (1.7-2.8) L 11/10/17 06:15 Total Bilirubin 0.2 mg/dL (0.2-1.0) 11/09/17 06:58 AST 31 IU/L (10-42) 11/09/17 06:58 ALT 18 IU/L (10-60) 11/09/17 06:58 Alkaline Phosphatase 138 IU/L (42-121) H 11/09/17 06:58 Troponin I < 0.04 ng/mL (<0.49) 11/09/17 22:50 Total Protein 5.4 g/dL (6.7-8.2) L 11/09/17 06:58 Albumin 2.5 g/dL (3.2-5.5) L 11/09/17 06:58 Globulin 2.9 g/dL (2.1-4.2) 11/09/17 06:58 Albumin/Globulin Ratio 0.9 (1.0-2.2) L 11/09/17 06:58 TSH 4.49 uIU/mL (0.34-5.60) 11/10/17 06:15 Free T4 0.73 ng/dL (0.58-1.64) 11/10/17 06:15 Free T3 pg/mL 2.72 pg/mL (2.5-3.9) 11/10/17 06:15 Urine Creatinine 43.0 mg/dL 11/07/17 14:51 Ur Total Protein Timed < 6 mg/dL 11/07/17 14:51 Protein/Creatinin Ratio Not Reportable 11/07/17 14:51 Blood Type A POSITIVE 11/07/17 01:03 Antibody Screen NEGATIVE 11/07/17 01:03
[2017-11-10] MEDS: DOCUSATE SODIUM 100 MG CAPSULE PO SCH ×2 (09:44→22:05)
[2017-11-10] MEDS ORDERED: POTASSIUM CHLORIDE 20 MEQ/15 ML UDC PO SCH (12:00)
[2017-11-10 14:28] LABS: % IRON SATURATION 5 % (20-50); IRON 28 ug/dL (28-170); TOTAL IRON BINDING CAPACITY 528 ug/dL (250-450); TRANSFERRIN 377 mg/dL (192-382)
--- NOTE | 2017-11-10 17:42 | Discharge Plan ---
Discharge Plan Disposition: 01 Home, Self Care Condition: Good Prescriptions: Docusate Sodium 100 mg PO BID #60 capsule Ibuprofen 600 mg PO Q6H PRN #30 tablet PRN Reason: Pain Iron Polysaccharide Complex [Ferrex 150] 150 mg PO DAILY #60 capsule Diet: Regular Activity Restrictions: No Restrictions Shower Restrictions: No Driving Restrictions: No Additional Instructions or Follow Up instructions: See written instructions from labor and delivery No Smoking: If you smoke, Please STOP! Call for help. Follow-up with: Citlalli Medrano DO [Provider Admit Priv/Credential] - 2 Weeks
[2017-11-10 23:24] VITALS: BP 104/62
--- NOTE | 2017-11-10 23:31 | Labor Flowsheet ---
Labor Flowsheet Datetime Report Generated by CPN: 11/10/2017 23:31 Datetime: 11/09/2017 07:03 Pulse: 99 SpO2 (%): 100 LaborFlag: Labor Datetime: 11/09/2017 04:49 VITAL SIGNS NBP Sys/Susan/Mean (mmHg): 107 : 63 : 73 Datetime: 11/07/2017 22:30 UTERINE ACTIVITY Monitor Mode: External Frequency (min): 2-4 Quality: Moderate Duration (sec): 40-60 Pattern: Normal: <= 5 Contractions in 10 Minutes Resting Tone (Palpate): Relaxed ASSESSMENT A Monitor Mode: External US Variability: Moderate 6-25 bpm Accelerations: None Decelerations: Variable Actions for Decelerations: Side to Side; Other Category: Category II Comments: spontaenous decels with pushing, provider @ bedside Datetime: 11/07/2017 22:14 STAGE 2 Pushing: Coached on Pushing Pushing Position: Pushing with Contractions; Pushing Right Side Pushing Progress: Descent with Pushing; Caput Noted; Presenting Part Visible Datetime: 11/07/2017 22:10 Provider Reviewed Strip: Yes COMMUNICATION Communication: Provider at Bedside Provider Notified (Name): Dr. Liza Communication Comments: Attend delivery Datetime: 11/07/2017 22:06 Temperature (C): 37.9 Datetime: 11/07/2017 22:00 FHR Baseline Rate : 135 Datetime: 11/07/2017 21:50 Oxygen Method: Non-Rebreather Patient Position/Activity: Left Lateral Datetime: 11/07/2017 21:30 Monitor Interventions for UA: [place] Adjusted Datetime: 11/07/2017 21:26 PAIN Pain Scale: 10 Pain Presence: Intermittent Pain Type: Contraction Datetime: 11/07/2017 21:11 Monitor Interventions for FHR: Ultrasound Adjusted Datetime: 11/07/2017 21:02 Pain Goal: 8 Datetime: 11/07/2017 21:01 Patient Care Comments: peanut ball Datetime: 11/07/2017 20:48 VAGINAL EXAM Dilatation (cm): 10.0 Effacement (%): 100 Station: 2 Exam by: Dr. De Jesus Vaginal Exam Comments: Continue to labor down Datetime: 11/07/2017 20:34 Hygiene: Sayda Care I/O Interventions: Straight Cath (ml) @ 300 Datetime: 11/07/2017 19:34 Stage of : Labor Respirations: 18 Pain Location: Back Pain Relief Measures: OLIVE KNOCKER Use Pain Coping: Breathing Through Contractions; Sleeping Pain Assessment Comments: Pt educated on pressing the epidural OLIVE KNOCKER button Membrane Status: Ruptured Amniotic Fluid Color: Clear MATERNAL ASSESSMENT Level of Consciousness: Lethargy DTR's/Clonus: DTRs 2+; No Clonus Headache: Denies Breath Sounds, Left: Clear and Equal Breath Sounds, Right: Clear and Equal Nausea/Vomiting: Denies RUQ Epigastric Pain: Denies Comfort Measures: Breathing/Relaxation TEACHING Instructional Method: Verbal Plan of Care: Plan of Care Discussed; Vaginal Delivery; Labor Unit Routine: Monitoring; IV Pumps Labor/Induction: Labor Stages Pain Management: Epidural; Pain Scale/Goals; Comfort Measures Medications: Antibiotics Datetime: 11/07/2017 19:30 Vibroacoustic Stim: Datetime: 11/07/2017 19:29 Antibiotics: Penicillin IV (Units) @ Datetime: 11/07/2017 18:47 Oxygen Amount (LPM): 10 Datetime: 11/07/2017 18:40 Vaginal Bleeding: Normal Show Cervix, Consistency: Soft Cervix, Position: Anterior Datetime: 11/07/2017 18:30 FHR Baseline Changes: No Baseline Change Datetime: 11/07/2017 17:00 ASSESSMENT B Category: Category II ASSESSMENT C Variability: Moderate 6-25 bpm Decelerations: Variable Datetime: 11/07/2017 16:30 Vital Sign Comments: legs are numb - epiduralized Lie 'A': Longitudinal Procedures: Sterile Vag Exam Datetime: 11/07/2017 16:00 Amniotic Fluid Amount: Small Datetime: 11/07/2017 15:00 Anesthesia Level Check: T10- Umbilicus Datetime: 11/07/2017 13:44 Epidural Positioning: Side Lying Anesthesia Comments: Epidural bolus given Datetime: 11/07/2017 13:05 Membranes Rupture Method: Spontaneous Amniotic Fluid Odor: Normal Nitrazine: Positive Datetime: 11/07/2017 12:59 ANESTHESIA Anesthesia Plans: Epidural Datetime: 11/07/2017 09:50 Notification Reason: Status Update; Labor Status; Membrane Status; Uterine Activity; Pain Datetime: 11/07/2017 08:15 MEDICATIONS Analgesics/Sedatives: Benadryl (mg) @ 25 Medication Comments: given for itching. Datetime: 11/07/2017 03:43 PATIENT CARE IV/Blood Work: IV Bolus Started Datetime: 11/07/2017 02:46 Epidural Procedure Other: Single Dose Datetime: 11/07/2017 02:40 Epidural Procedure: Test Dose Datetime: 11/07/2017 02:30 PROCEDURE TIME OUT Procedure Verify: Accurate Procedure Consent Form Datetime: 11/07/2017 01:20 SBAR Notable Communications: Call placed to MD for order for Benadryl d/t pt. itching Datetime: 11/07/2017 01:03 Maternal Comments: Pt c/o being itching, scratching @ face and becoming anxious, reassured pt that this is a side effect of her pain medication. will continue to monitor.
--- NOTE | 2017-11-11 02:55 | DISCHARGE SUMMARY ---
Physician: Bing De Jesus MD DATE OF ADMISSION: 11/07/2017 DATE OF DISCHARGE: 11/10/2017 ADMISSION DIAGNOSES 1. Intrauterine at 40 weeks and 6 days. 2. Active spontaneous labor. 3. Group B strep positive 4. Depression and anxiety. DISCHARGE DIAGNOSES 1. Status post spontaneous vaginal delivery at term. 2. Depression and anxiety. 3. Possible somatization disorder. 4. Chest pain, thoracic pain, palpitations, bradycardia. 5. Hypokalemia and hypomagnesemia. 6. Chronic iron deficiency anemia. 7. Thrombocytopenia, likely gestational. PROCEDURES 1. Spontaneous vaginal delivery at term on 11/07/2017. 2. Echocardiogram on 11/10/2017 that was normal. 3. Continuous telemetry for more than [address] depression. 4. Electrocardiogram was normal. HOSPITAL COURSE: The patient was a primipara who presented in active spontaneous labor at term. She progressed to deliver in an uncomplicated fashion. She did receive an epidural for pain control. B lood loss was minimal. Her course was remarkable for all the problems listed below. Othe rwise, she was eating, ambulating, and urinating without difficulties. She was not having any heavy bleeding. She described her mood as good. She had a strong desire to breastfeed, but was having ciaran n with cracked nipples, and is currently pumping and feeding that way. Cardiac symptoms: Patient had intermittent cardiac symptoms throughout her hospitalization. The onl y objective abnormality seen was bradycardia. The patient did have periods of heart rate down to the 40s. Otherwise, the patient had multiple concerning symptoms that were very distressing to her, greg etimes creating what appeared to be an emotional crisis, including sobbing and inability to easily so othe her. During her labor, she complained of 10/10 mid thoracic back pain. On day 1, carla hollingsworth complained of chest pain. The following day, when discussing the same symptoms, she said she was n ot having chest pain, but at that time had palpitations, per her. During this time, she was on aniket nuous telemetry, and no abnormality was seen. The patient had a workup for her bradycardia, which in cluded an internal medicine consult. After workup, they were reassured and felt like she was a katie date for discharge. The etiology of the bradycardia is currently uncertain, but it is very reassurin g that the patient is trending her heart rate upwards with time. Also, she is able to mount a normal heart rate in response to activity. She has had a normal cardiac evaluation including an echocardio gram, EKG, continuous telemetry, and troponins. She does not have any evidence of a PE: No cough, h emoptysis, asymmetric leg swelling, or calf pain. Hypokalemia and hypomagnesemia: These were replaced. They were probably in part due to dilution wit h IV fluid boluses she received in labor. Thrombocytopenia: This is likely gestational. On admission, her platelets were 145. These trended down to 125 when she was checked for her thoracic pain. I considered a diagnosis of preeclampsia at that time and I was checking for any liver dysfunction, especially. The patient did have normal AST, ALT, creatinine. She also had a normal protein to creatinine ratio. Her platelets continued to dri ft downward to a katherin of 105 on day 1. They were trending upward by discharge. Chronic iron deficient anemia: Patient had anemia throughout the with hematocrit in the 20 s. Her hematocrit at admission was 29.5, with an MCV of 82, which is normal. The patient had minima l blood loss with delivery. She was tolerating her anemia well, without dizziness or persistent head aches. She underwent a workup with Internal Medicine, and had a normal B12 and folate level. Her ir on levels were low. She was sent home with iron supplementation. Depression, anxiety, and possible somatization disorder: Upon presentation in labor, the patient's a ffect was not normal. She would not make eye contact and her affect was quite blunt. The patient re lates a history of 2 prior suicide attempts. Currently, she is feeling well for herself. She does n ot want to follow up with a psychiatrist or counselor. She does not want to take medications. She i s dedicated to . She declines to bottle feed in the hopes that she could get more rest and feel more emotionally stable. She has never hallucinated. Throughout the hospital, she did warm up a bit and would make some contact, and also would smile from time to time. She was bonding appro priately with her baby and reading the baby's cues, and feeding appropriately. She will have close o utpatient followup with the [facility] and with [facility] for home visits. She was counseled that if s he has hallucinations, she needs to go to the ER right away. Also, if she has suicidal or homicidal ideations, she needs to go to the ER. Throughout her hospitalization, the patient had some very sign ificant somatic complaints that were very distressing to her. This included crying out when IV antib iotics were started, sobbing when her nipples were cracked, complaining of 10/10 thoracic pain while in labor, an intermittent headache that was somewhat positional at the start for which she was evalua cameron for a spinal headache, the chest pain and sensation of palpitations for which she received an ext ensive cardiac workup. The patient's symptoms were seriously considered and evaluated. As roma lawson has turned out to be reassuring, I do feel like the somatization diagnosis is something to consider in the long run. We are doing as much as possible to support this patient and her family at home, a nd the patient is declining further assistance as far as medication or asaf psychiatric followup. DISCHARGE EXAMINATION VITAL SIGNS: The patient is afebrile with normal vital signs. GENERAL: She is alert and in no apparent distress. She smiles from time to time and makes brief eye contact. Otherwise, her affect is still blunt. ABDOMEN: Soft, nontender, nondistended. Fundus firm, nontender and 2 cm below the umbilicus. EXTREMITIES: Lower extremities symmetric, with trace edema. No erythema, no tenderness. LABORATORY DATA: Most recent labs on 11/10/2017 include a hematocrit of 27.6, platelets 107, normal free T3, free T4, and TSH. Normal vitamin B12 and folate. Normal transferrin, elevated TIBC and low iron saturation levels. Her most recent magnesium level was 1.4, and this was replaced and does not need to be rechecked. Her most recent potassium was 3.4, and it was replaced and does not need to b e rechecked. DISPOSITION: Home. CONDITION: Good. FOLLOWUP: Tomorrow for both mom and baby for close psychiatric followup. Baby also has borderline b ilirubin levels and needs to be watched carefully for this. DISCHARGE MEDICATIONS 1. Ibuprofen p.r.n. pain. 2. Colace daily to soften stool. 3. Iron 1 tablet daily. OUTSTANDING LABORATORIES OR STUDIES: None. TD: 11/10/2017 19:22
== END 2017-11-10 22:50 | disposition home or self-care (01) | DRG 774 ==
LOC: WFO 17:30 → FBP 17:32 → UNDOADMOB 20:24 → WFO 20:50 → OBSVTOIN 11-07 00:18 → INTOOBSV 11-07 00:18 → OBSVTOIN 11-07 00:20 → FBP 11-07 00:20
PROVIDERS: ADMIT Obstetrics & Gynecology; ATTEND Obstetrics & Gynecology
PROC: 10E0XZZ Delivery of Products of Conception, External Approach (ICD-10-PCS; principal; 2017-11-07)
DX: O48.0 Post-term pregnancy (principal); O75.2 Pyrexia during labor, not elsewhere classified; O99.12 Other diseases of the blood and blood-forming organs and certain disorders involving the immune mechanism complicating childbirth; Z37.0 Single live birth; Z3A.40 40 weeks gestation of pregnancy; O99.824 Streptococcus B carrier state complicating childbirth; O99.344 Other mental disorders complicating childbirth; F32.9 Major depressive disorder, single episode, unspecified; F41.0 Panic disorder [episodic paroxysmal anxiety]; F41.1 Generalized anxiety disorder; Z91.5 Personal history of self-harm; F45.0 Somatization disorder; E87.6 Hypokalemia; O99.284 Endocrine, nutritional and metabolic diseases complicating childbirth; E83.42 Hypomagnesemia; O99.02 Anemia complicating childbirth; D69.59 Other secondary thrombocytopenia; D50.0 Iron deficiency anemia secondary to blood loss (chronic); O70.0 First degree perineal laceration during delivery; R07.9 Chest pain, unspecified; R00.2 Palpitations; O99.89 Other specified diseases and conditions complicating pregnancy, childbirth and the puerperium; R00.1 Bradycardia, unspecified; O76 Abnormality in fetal heart rate and rhythm complicating labor and delivery; R51 Headache; O92.13 Cracked nipple associated with lactation; M62.830 Muscle spasm of back; O32.4XX0 Maternal care for high head at term, not applicable or unspecified; M95.5 Acquired deformity of pelvis; O99.214 Obesity complicating childbirth; E66.9 Obesity, unspecified; R00.0 Tachycardia, unspecified
CPT/HCPCS: 36415; 80048; 80053; 82570; 82607; 82746; 83540; 83735; 84156; 84439; 84443; 84466; 84481; 84484; 85025; 85049; 86850; 86900; 86901; 88307; 93005; 93306; 96372; 99213

== ENCOUNTER 2018-02-02 08:00 | Outpatient (CLI) | payer BC, OTHER | END 2018-02-02 23:59 | LOC: LAB.R 08:00 | PROVIDERS: ATTEND Obstetrics & Gynecology | DX: N76.0 Acute vaginitis (principal) | CPT/HCPCS: 87480; 87510; 87660 ==